=== PATIENT | female | born 1995 | race Caucasian/White ===

== ENCOUNTER → 2019-06-23 13:45 | Outpatient (CLI) | payer OTHER, SELFPAY ==
[2019-06-23 11:02] VITALS: BMI 31.1
[2019-06-23 16:46] LABS: Chlamydia Trachomatis by PCR Negative (Negative); Neisserai gonorrhoeae by PCR Negative (Negative); Probe Check PASS; Sample Adequacy Control PASS; Specimen Processing Control PASS
[2019-06-26 12:20] LABS: HPV Reflexed? NOT INDICATED
== END ==
PROVIDERS: Family Provider Internal Medicine; PCP Internal Medicine; Referring Provider Obstetrics & Gynecology; Visit Provider Obstetrics & Gynecology
DX: Z34.90 Encounter for supervision of normal pregnancy, unspecified, unspecified trimester (principal); Z12.4 Encounter for screening for malignant neoplasm of cervix
CPT/HCPCS: 87086; 87088; 87491; 87591; 87624; 88175; G0145

== ENCOUNTER → 2019-06-24 10:53 | Outpatient (CLI) | payer OTHER, SELFPAY ==
[2019-06-23 11:02] VITALS: BMI 31.1
[2019-06-24 12:20] LABS: Absolute Lymphocyte Count 1.86 X10^3/uL (0.83-4.51); Absolute Neutrophil Count 5.4 X10^3/uL (2.0-7.7); Basophil# 0.02 X10^3/uL; Basophil% 0.3 % (0-1); Eosinophil# 0.08 X10^3/uL; Hematocrit 40.3 % (37-47); Hemoglobin 14.3 g/dL (12.0-15.0); Lymphocyte # 1.86 X10^3/ul (4.0); Lymphocyte % 23.8 % (19-41); Mean Corp Hgb Conc 35.5 g/dL (32-36); Mean Corpuscular Hgb 30.9 pg (27.0-32.0); Mean Platelet Vol. 8.8 fl (6.2-12.0); Monocyte# 0.43 X10^3/uL; Monocyte% 5.5 % (0-10); NRBC Flagged by Analyzer 0 % (0-5); Neutrophil # 5.38 X10^3/uL (2.7-7.7); Neutrophil % 68.9 % (47-70); Platelet Count 227 K/mm3 (150-450); RBC Distribution Width CV 12.6 % (11.6-14.6); RBC Distribution Width SD 39.4 fl (35.1-43.9); Red Blood Count 4.63 M/mm3 (4.2-5.4); White Blood Count 7.8 K/mm3 (4.4-11.0)
[2019-06-24 12:33] LABS: Glucose Challenge Gest 1H 50g 110 mg/dL (70-140)
[2019-06-24 13:43] LABS: HIV - WCH Non-Reactive (Nonreactive); Hepatitis B Surface Antigen Non-Reactive (Nonreactive); Rubella IgG 17.4 IU/mL
[2019-06-26 01:38] LABS: Rapid Plasmin Reagin (RPR) NONREACTIVE (NONREACTIVE)
== END ==
PROVIDERS: Family Provider Internal Medicine; PCP Internal Medicine; Referring Provider Obstetrics & Gynecology; Visit Provider Obstetrics & Gynecology
DX: O99.210 Obesity complicating pregnancy, unspecified trimester (principal); Z3A.00 Weeks of gestation of pregnancy not specified
CPT/HCPCS: 36415; 82950; 85025; 86592; 86703; 86762; 86850; 86900; 86901; 87340

== ENCOUNTER → 2019-08-18 16:48 | Outpatient (CLI) | payer OTHER, SELFPAY ==
[2019-08-18 16:09] VITALS: BMI 33.0
[2019-08-18 18:15] LABS: Protein, Urine (Random) 13.6 mg/dL (<11.9); Protein:Creat Ratio 83 mg/g CRE (0-200)
== END ==
PROVIDERS: Family Provider Internal Medicine; PCP Internal Medicine; Referring Provider Obstetrics & Gynecology; Visit Provider Obstetrics & Gynecology
DX: O16.9 Unspecified maternal hypertension, unspecified trimester (principal); Z3A.00 Weeks of gestation of pregnancy not specified
CPT/HCPCS: 82570; 84156

== ENCOUNTER → 2019-10-23 15:33 | Outpatient (CLI) | payer OTHER, SELFPAY ==
[2019-10-23 14:54] VITALS: BMI 33.0
[2019-10-23 17:24] LABS: Absolute Lymphocyte Count 1.99 X10^3/uL (0.83-4.51); Absolute Neutrophil Count 7.9 X10^3/uL (2.0-7.7); Basophil# 0.02 X10^3/uL; Basophil% 0.2 % (0-1); Eosinophil# 0.08 X10^3/uL; Eosinophils% 0.8 % (0-5); Hematocrit 35.3 % (37-47); Hemoglobin 11.9 g/dL (12.0-15.0); Lymphocyte # 1.99 X10^3/ul (4.0); Mean Corp Hgb Conc 33.7 g/dL (32-36); Mean Corpuscular Hgb 29.8 pg (27.0-32.0); Mean Corpuscular Volume 88.3 fL (81-99); Mean Platelet Vol. 9.2 fl (6.2-12.0); Monocyte# 0.44 X10^3/uL; Monocyte% 4.2 % (0-10); NRBC Flagged by Analyzer 0 % (0-5); Neutrophil # 7.88 X10^3/uL (2.7-7.7); Neutrophil % 75.2 % (47-70); Platelet Count 243 K/mm3 (150-450); RBC Distribution Width CV 12.8 % (11.6-14.6); RBC Distribution Width SD 41.1 fl (35.1-43.9); White Blood Count 10.5 K/mm3 (4.4-11.0)
[2019-10-23 17:49] LABS: Glucose Challenge Gest 1H 50g 145 mg/dL (70-140)
== END ==
PROVIDERS: Family Provider Internal Medicine; PCP Internal Medicine; Referring Provider Obstetrics & Gynecology; Visit Provider Obstetrics & Gynecology
DX: Z34.01 Encounter for supervision of normal first pregnancy, first trimester (principal)
CPT/HCPCS: 36415; 82950; 85025

== ENCOUNTER → 2019-11-03 09:38 | Outpatient (CLI) | payer OTHER, SELFPAY ==
[2019-10-23 14:54] VITALS: BMI 33.0
[2019-11-03 11:34] LABS: Glucose GTT-Gestational 1 Hr 180 mg/dL (<190)
[2019-11-03 11:36] LABS: Glucose GTT-Gestation. Fasting 92 mg/dL (<105)
[2019-11-03 13:33] LABS: Glucose GTT-Gestational 3 Hr 125 L (<145)
[2019-11-03 13:37] LABS: Glucose GTT-Gestational 2 Hr 130 mg/dL (<165)
== END ==
PROVIDERS: Family Provider Internal Medicine; PCP Internal Medicine; Referring Provider Obstetrics & Gynecology; Visit Provider Obstetrics & Gynecology
DX: O99.810 Abnormal glucose complicating pregnancy (principal); Z3A.00 Weeks of gestation of pregnancy not specified
CPT/HCPCS: 36415; 82951; 82952

== ENCOUNTER → 2019-12-25 16:56 | Outpatient (CLI) | payer OTHER, SELFPAY ==
[2019-12-25 15:44] VITALS: BMI 36.9
== END ==
PROVIDERS: PCP Internal Medicine; Referring Provider Obstetrics & Gynecology; Visit Provider Obstetrics & Gynecology
DX: Z34.90 Encounter for supervision of normal pregnancy, unspecified, unspecified trimester (principal)
CPT/HCPCS: 87077; 87081; 87186

== ENCOUNTER → 2020-01-01 16:16 | Outpatient (CLI) | payer OTHER, SELFPAY ==
[2020-01-01 16:01] VITALS: BMI 36.9
[2020-01-01 16:31] LABS: Protein, Urine (Random) 15.1 mg/dL (<11.9); Protein:Creat Ratio 165 mg/g CRE (0-200)
== END ==
PROVIDERS: PCP Internal Medicine; Visit Provider Obstetrics & Gynecology
DX: O16.3 Unspecified maternal hypertension, third trimester (principal); Z3A.00 Weeks of gestation of pregnancy not specified
CPT/HCPCS: 82570; 84156

== ENCOUNTER 2020-01-14 16:05 | Outpatient (CLI) | payer OTHER, MEDICAID, SELFPAY ==
[2020-01-14 15:42] VITALS: BMI 36.9
[2020-01-14 16:22] VITALS: BP 132/85; PULSE 81; TEMP 98
[2020-01-14 16:23] VITALS: PULSE 81; O2SAT 97
--- NOTE | 2020-01-14 16:30 | OB.TRI.PN_ITS ---
Progress Notes Date of Service: 01/14/20 Progress Note: Patient presents for triage evaluation secondary to elevated blood pressures in the office FHT: 130 Moderate variability reactive no decelerations category I tracing Labette: no Contractions Assessment and plan: elevated blood pressures- repeats mostly WNL, asymptomatic, reassuring lab work, Reactive NST, reassuring maternal and status patient discharged to home to follow-up in office for bp check tomorrow. See problem list details for additional plan information. Multi Select Codes - Urinary/Genital Urinary/Genital CPT Codes: 56961-61 non-stress test Interp
[2020-01-14 16:39] VITALS: BP 136/89; PULSE 83
[2020-01-14 16:40] VITALS: BMI 39.3
[2020-01-14 16:48] LABS: Hematocrit 38.3 % (37-47); Hemoglobin 13.4 g/dL (12.0-15.0); Mean Corpuscular Hgb 30.1 pg (27.0-32.0); Mean Corpuscular Volume 86.1 fL (81-99); Mean Platelet Vol. 9.3 fl (6.2-12.0); Platelet Count 226 K/mm3 (150-450); RBC Distribution Width CV 13.3 % (11.6-14.6); RBC Distribution Width SD 41.6 fl (35.1-43.9); Red Blood Count 4.45 M/mm3 (4.2-5.4); White Blood Count 9.8 K/mm3 (4.4-11.0)
[2020-01-14 16:54] VITALS: BP 136/91; PULSE 80
[2020-01-14 17:08] VITALS: O2SAT 99
[2020-01-14 17:08] LABS: AST(SGOT) 16 U/L (15-37); Alanine Aminotransfer ALT/SGPT 16 U/L (13-56); Creatinine, Serum 0.72 mg/dL (0.55-1.02); EST Glomerular Filtration Rate 106 mL/min (>60); Est Glom Filt Rate - Afr Amer 128 mL/min (>60); Estimated Creatinine Clearance 117.16 ml/min; Protein, Urine (Random) 15.4 mg/dL (<11.9); Protein:Creat Ratio 198 mg/g CRE (0-200); Uric Acid 6.8 mg/dL (2.6-6.0)
[2020-01-14 17:09] VITALS: BP 135/93; PULSE 81
[2020-01-14 17:15] LABS: Partial Thromboplast Time 31.3 Seconds (24.1-36.2); Prothrombin Time (Protime)PT. 12.6 SECONDS (11.7-14.9)
[2020-01-15 13:00] VITALS: BP 153/96; PULSE 75; PULSE 78; O2SAT 98
== END 2020-01-14 17:30 | disposition home or self-care (01) ==
LOC: WPOUT 16:11 → OBT 16:21
PROVIDERS: PCP Internal Medicine; Referring Provider Obstetrics & Gynecology; Visit Provider Obstetrics & Gynecology
DX: O16.3 Unspecified maternal hypertension, third trimester (principal); Z3A.00 Weeks of gestation of pregnancy not specified
CPT/HCPCS: 36415; 59025; 59050; 82565; 82570; 84156; 84450; 84460; 84550; 85027; 85610; 85730; 99218; G0378

== ENCOUNTER 2020-01-15 13:46 | Inpatient (IN) | payer OTHER, MEDICAID, SELFPAY ==
[2020-01-15] VITALS (25 sets, daily range): BP systolic 125–170; BP diastolic 65–101; PULSE 61–86; TEMP 36.6–37.8; O2SAT 97–100; BMI 39.3; BMI 38.9
[2020-01-15 12:41] LABS: Absolute Lymphocyte Count 1.95 X10^3/uL (0.83-4.51); Absolute Neutrophil Count 8.2 X10^3/uL (2.0-7.7); Basophil# 0.03 X10^3/uL; Basophil% 0.3 % (0-1); Eosinophil# 0.05 X10^3/uL; Eosinophils% 0.5 % (0-5); Hematocrit 39.7 % (37-47); Hemoglobin 13.8 g/dL (12.0-15.0); Lymphocyte # 1.95 X10^3/ul (4.0); Mean Corp Hgb Conc 34.8 g/dL (32-36); Mean Corpuscular Volume 86.3 fL (81-99); Mean Platelet Vol. 9.7 fl (6.2-12.0); Monocyte# 0.58 X10^3/uL; Monocyte% 5.4 % (0-10); NRBC Flagged by Analyzer 0 % (0-5); Neutrophil # 8.15 X10^3/uL (2.7-7.7); Neutrophil % 75.3 % (47-70); Platelet Count 235 K/mm3 (150-450); RBC Distribution Width CV 13.5 % (11.6-14.6); RBC Distribution Width SD 41.8 fl (35.1-43.9); White Blood Count 10.8 K/mm3 (4.4-11.0)
[2020-01-15 12:54] LABS: ALB/GLOB Ratio 0.7 RATIO (0.9-2.4); AST(SGOT) 15 U/L (15-37); Alanine Aminotransfer ALT/SGPT 20 U/L (13-56); Albumin, Serum 2.8 g/dL (3.2-5.0); Alkaline Phosphatase 271 U/L (45-117); Anion Gap 6 (5-15); BUN 12 mg/dL (7-18); BUN/Creat Ratio 16.6 RATIO (10-20); Calcium,Total 9.2 mg/dL (8.5-10.1); Chloride 106 mmol/L (98-107); Creatinine, Serum 0.72 mg/dL (0.55-1.02); EST Glomerular Filtration Rate 104 mL/min (>60); Est Glom Filt Rate - Afr Amer 126 mL/min (>60); Globulin 4.3 g/dL (2.2-4.2); Glucose 88 mg/dL (74-106); Potassium 4.3 mmol/L (3.5-5.1); Protein, Total 7.1 g/dL (6.4-8.2); Sodium Level 136 mmol/L (136-145)
[2020-01-15 12:55] LABS: Protein, Urine (Random) 36.3 mg/dL (<11.9); Protein:Creat Ratio 212 mg/g CRE (0-200)
[2020-01-15] MEDS: Lactated Ringers 1,000 ML 50 ML IV ×2 (14:00→20:48)
[2020-01-15] MEDS: miSOPROStol 25 MCG TABLET VAGINAL (16:52)
[2020-01-15] MEDS: Lactated Ringers 1,000 ML 999 ML IV (19:48)
[2020-01-15] MEDS: Oxytocin 30 units/NS 500 ml 30 UNITS/500 ML IV.SOLN IV ×2 (23:15)
[2020-01-16] VITALS (43 sets, daily range): BP systolic 100–167; BP diastolic 55–96; PULSE 56–103; RESP 14–18; TEMP 36.3–37.1; O2SAT 80–100
--- NOTE | 2020-01-16 06:14 | PCM.HP.OB ---
- Problem List (1) Variable heart rate decelerations, antepartum Status: Acute (2) Gestational hypertension Status: Acute History Date of Admission: 01/15/20 Final KARLENE: 01/19/20 Gestational age: 39 Weeks and 4 Days History of this : This is a 24 year-old, , at 39 weeks gestational age presents for IOL secondary to GHTN. BPs are ranging in the 140s-150s over 90s with no MORILLO BV N V. she has some contractions but nothing regular, no vb lof admits good fm. When she was initially on the monitor there was a spontaneous heart rate decel down into the 70s to 80s with good recovery, moderate variability and is reactive. Medical History: Medical History (Last Reviewed 01/15/20 @ 11:41 by Nichole Trejo) PCOS (polycystic ovarian syndrome) E28.2 Surgical History: Surgical History (Last Reviewed 01/15/20 @ 11:41 by Nichole Trejo) H/O wisdom tooth extraction K08.409 Allergies No Known Allergies Allergy (Verified 01/15/20 11:41) Home Medications: Home Medications multivitamin no.47-iron fum 27 mg-folate no.1 1 mg-dha 300 mg capsule 1 cap PO DAILY cap 06/23/19 breast pump See Rx Instructions .ROUTE .MEDSUPPLY #1 ea 12/30/19 Smoking Status: Never smoker Alcohol: None Number of Fetus(es): 1 NST - FHR Rate Baby A Baseline: 130 Variability:: Moderate Accelerations:: 15 x 15 Decelerations:: Variable, Prolonged NST Reactive:: Yes FHR Category:: Category II Uterine Activity:: irregular History Past Pregnancies: Past Pregnancies Delivery Date Name GA/ Weeks Outcome Route Wt Sex Labor Length Anesthesia Delivery Location Provider FOB Labs: Mom's Current Diagnoses Unspecified maternal hypertension, third trimester 01/15/20 Mom's Labs & Results 01/15/20 01/15/20 01/15/20 11:59 11:59 11:59 WBC 10.8 RBC 4.60 Hgb 13.8 Hct 39.7 MCV 86.3 MCH 30.0 MCHC 34.8 RDW Std Deviation 41.8 RDW Coeff of Rakesh 13.5 Plt Count 235 MPV 9.7 Immature Gran % (Auto) 0.500 Neut % (Auto) 75.3 H Lymph % (Auto) 18.0 L Grayson % (Auto) 5.4 Eos % (Auto) 0.5 Baso % (Auto) 0.3 Absolute Neuts (auto) 8.2 H Absolute Lymphs (auto) 1.95 Nucleated RBC % 0 Sodium 136 Potassium 4.3 Chloride 106 Carbon Dioxide 24.0 Anion Gap 6 BUN 12 Creatinine 0.72 Est GFR (MDRD) Af Amer 126 Est GFR (MDRD) Non-Af 104 BUN/Creatinine Ratio 16.6 Glucose 88 Calcium 9.2 Total Bilirubin 0.20 AST 15 ALT 20 Alkaline Phosphatase 271 H Total Protein 7.1 Albumin 2.8 L Globulin 4.3 H Albumin/Globulin Ratio 0.7 L U Random Total Protein 36.3 H Urine Creatinine 171.00 Protein/Creatinin Ratio 212 H Blood Type Antibody Screen 01/15/20 14:15 WBC RBC Hgb Hct MCV MCH MCHC RDW Std Deviation RDW Coeff of Rakesh Plt Count MPV Immature Gran % (Auto) Neut % (Auto) Lymph % (Auto) Grayson % (Auto) Eos % (Auto) Baso % (Auto) Absolute Neuts (auto) Absolute Lymphs (auto) Nucleated RBC % Sodium Potassium Chloride Carbon Dioxide Anion Gap BUN Creatinine Est GFR (MDRD) Af Amer Est GFR (MDRD) Non-Af BUN/Creatinine Ratio Glucose Calcium Total Bilirubin AST ALT Alkaline Phosphatase Total Protein Albumin Globulin Albumin/Globulin Ratio U Random Total Protein Urine Creatinine Protein/Creatinin Ratio Blood Type B POSITIVE Antibody Screen NEGATIVE Course Did the patient receive Yes care? Labs Blood Type: B RH: POSITIVE RPR/VDRL/Syphilis Nonreactive Rubella status Immune HbSAg Negative Date Done: 06/24/19 Chlamydia Negative Gonorrhea Negative HIV/AIDS Non-Reactive Group B Strep: Positive Current Obstetrical History Gestational Diabetes No: 3-hr test negative Incompetent Cervix No Infertility No: PCOS - no meds for IUGR No Macrosomia No Hypertension/Pre-eclampsia Yes Placenta Previa/Abruption No PTL/PROM No Uterine anomaly No Oligohydramnios No Polyhydramnios No Multiple gestation No Past Medical History Asthma No Diabetes No Hypertension Yes: prev. had - has been good for a couple years, no meds Heart disease No Mitral valve prolapse No Neurologic/Seizure disorder/ No Migraines Kidney disease No Liver disease No Varicosities No Clotting disorders/Hx of DVT No Thyroid Dysfunction No Other medical diseases No Psychiatric disorders No Major trauma No Abnormal PAP smear No Sleep apnea No Mammogram in the last 2 years No Social History Marital Status: SINGLE Alleged father Abdulkadir Tillman Hx Smoking No Smoking Status Never smoker Expected Infant Delivery Method: Spontaneous Vaginal Review of Systems Constitutional: Denies: Fever, Malaise Eyes: Denies: Blurred vision, Vision Change HEENT: Denies: Head Aches, Visual Changes Cardiovascular: Denies: Chest Pain, Palpitations Respiratory: Denies: Cough, Shortness of Breath, Wheezing Gastrointestinal: Denies: Abdominal Pain, Diarrhea, Nausea, Vomiting Genitourinary: Denies: Dysuria, Hematuria Musculoskeletal: Denies: Joint Pain, Muscle pain Skin: Denies: Lesions, Rash Neurological: Denies: Blurred vision, Focal weakness, Headaches Psychiatric: Denies: Anxiety, Depression Endocrine: Denies: Heat/ Cold Intolerance Hematologic/ Lymphatic: Denies: Easy Bruising, Easy Bleeding Physical Exam Vitals: Vital Signs Temp Pulse BP Pulse Ox 98.1 F 66 130/66 H 98 01/16/20 06:04 01/16/20 06:02 01/16/20 06:02 01/16/20 06:04 General: Alert, Cooperative, No apparent distress HEENT: Atraumatic, Normocephalic. Negative for: Thyromegaly, Lymphadenopathy Cardiovascular: Regular rate Lungs: Normal air movement Abdomen: Soft, Non Tender, Gravid Neurological: Deep Tendon Reflexes 2+/4 and Symmetrical, Neuro grossly intact. Negative for: Clonus GEOSPATIAL INFORMATION TECHNOLOGIST: Normal external genitalia. Negative for: Vulvar lesions Estimated gestational size: Appropriate for gestational size Presentation: Cephalic Cervix Dilation (cm): 1 Assessment/Plan All Active Problems (Last Reviewed 01/15/20 @ 11:41 by Nichole Trejo) Variable heart rate decelerations, antepartum (Acute) Gestational hypertension (Acute) GBS (group B Streptococcus carrier), +RV culture, currently (Acute) Abnormal glucose affecting (Acute) Influenza vaccination declined (Acute) Obesity affecting (Acute) Supervision of normal (Acute) (Acute) Elevated blood pressure affecting in second trimester, antepartum (Resolved) This is a 24 year-old, , at 39 weeks gestational age presents at 39 weeks for IOL secondary to GHTN and heart rate decel. Patient presents IOL, plan management for , plan Cytotec then Pitocin and AROM Pain management: [plans epidural]. GBS positive plan vancomycin. Management of any complications: Gestational hypertension and heart rate decelerations. Uric acid elevated but other labs within normal limits. Plan magnesium sulfate if severely elevated blood pressures. I have reviewed the [facility] and made any clinically relevant updates.
--- NOTE | 2020-01-16 06:41 | PCM.PN.BLA ---
Progress Note patient examined and noted to be 3 cm dilated, loss of station and different shape of abdomen noted- ultrasound confirms conversion to breech presentation. pitocin turned off immediately, polyhydramnios noted on ultrasound and discussed with patient option of ECV or immediate delivery. discussed risks of either procedure. patient agrees to external cephalic version. epidural placed and terbutaline given. constant pressure was applied to attempt conversion to vertex with a forward roll then attempted backwards roll. neither were successful and therefore the decision to proceed with primary for breech was made. STROKE Vital Signs/Narrative: Vital Signs Temp Pulse BP Pulse Ox 01/16/20 06:04 98.1 F 98 01/16/20 06:02 66 130/66 H 01/16/20 04:41 98.5 F 74 124/67 H 98 01/16/20 03:34 97.7 F L 76 135/88 H 98
[2020-01-16] MEDS: Lactated Ringers 500 ML 999 ML IV (06:58)
[2020-01-16] MEDS: Terbutaline 1 MG/ML Vial 0.25 MG SC (08:43)
[2020-01-16] MEDS: Sodium Citrate/Citric Acid 30 ML UDC PO (09:11)
[2020-01-16] MEDS: Cefazolin 2 GM in 0.9% Normal Saline 100 ML IV (09:20)
--- NOTE | 2020-01-16 10:39 | PCM.OPRPT ---
Problem List (1) Variable heart rate decelerations, antepartum Status: Acute (2) Gestational hypertension Status: Acute Report of Operation Date of Procedure: 01/16/20 Delivery Classification: VANESSA transportation superintendent: Marian Fuentse Type of Anesthesia:: Epidural Special Medications: nacho Implants Used: none Date of Procedure: 01/16/20 Pre-Operative Diagnosis: ghtn, breech Post-Operative Diagnosis: same Indications for : Breech Description of Procedure: Patient is a 24-year-old G1, P0 who presented at 39 and 3 with new onset gestational hypertension. Infant was felt to be vertex and intermittent variable decelerations were noted however she was still able to be given by being induced by Cytotec and then Pitocin. Aggressive positionings throughout the night due to heart rate tracing abnormalities were undertaken and upon reevaluation in the morning she was 3 cm dilated and it was noted that the appearance of her abdomen looked drastically different and there was a change in station. Ultrasound confirmed conversion to breech. Patient was counseled and consented for an external cephalic version and this was unsuccessful and therefore the decision to proceed with her primary low transverse was made. Epidural had already been placed and was found to be adequate. Drake catheter was placed. The patient was placed in the dorsal supine position with leftward tilt. Patient was prepped and draped in the normal sterile fashion. Pfannenstiel skin incision was made with the scalpel and carried through to the underlying layer of fascia with the scalpel. Fascia was nicked in the midline and the incision extended laterally. The rectus bellies were dissected off superiorly and inferiorly with out complication both sharply and bluntly. The peritoneum was entered digitally. The incision was stretched and a low transverse uterine incision was made with the scalpel. The infant's buttocks was delivered atraumatically followed by the anterior and posterior shoulders without complication the rest of the infant delivered. The cord was clamped and cut and the was handed off to awaiting nurse. The placenta was delivered spontaneously immediately following and was noted to be intact and have a three-vessel cord. The uterus was exteriorized cleared of all clots and debris, and the incision was closed in a double layer closure using #1 Monocryl. The ovaries and fallopian tubes were noted to be within normal limits. The uterus was returned to the maternal abdomen and gutters were cleared of all clots and debris. The peritoneum was closed with 3-0 Monocryl in a running fashion. Gloves were changed prior to fascial closure. Nacho was applied to the rectus bellies and the Bovie and an additional 3-0 Monocryl suture were placed to obtain hemostasis. Fascia was closed with 0 PDS in a running fashion. Subcutaneous tissue was copiously irrigated and the skin was closed with 3-0 Monocryl in a subcuticular fashion. Mepilex dressing was applied without complication. Patient was taken to recovery in stable condition. It was discussed with the patient that based on the clinical information obtained during this encounter, combined with her history, at this time I would recommend vaginal or cesareans for future deliveries if further pregnancies are desired. Amniotic Membrane Rupture Type: Artificial Amniotic Fluid Description: Clear Placenta Disposition: [facility] Specimen(s) sent to pathology: none Drain: Drake to straight drain Fluids Replaced: crystalloid Cord Entanglement: None Cord Vessel Description: 3 Vessels Esitmated Blood Loss (ml): 900 Infant Gender: Male Multi Select Codes - Urinary/Genital Urinary/Genital CPT Codes: 94358 Delivery [facility]
[2020-01-16] MEDS: Oxytocin 30 units/NS 500 ml 30 UNITS/500 ML IV.SOLN 167 UNITS IV (10:40)
[2020-01-16] MEDS: Lactated Ringers 1,000 ML 100 ML IV (13:44)
[2020-01-16] MEDS: Ketorolac 30 MG/ML Syringe IV ×2 (14:46→20:47)
--- NOTE | 2020-01-16 18:10 | PCM.PN.OB ---
Patient Problems: Active and Suspected Problems (Last Reviewed 01/15/20 @ 11:41 by Nichole Trejo) Variable heart rate decelerations, antepartum (Acute) Gestational hypertension (Acute) Subjective: doing well no complaints pain controlled no CP SOB N V ambulating well tolerating po lochia moderate, going well - Physical Exam Vitals/I&O's: Vital Signs Temp Pulse Resp BP Pulse Ox 98.4 F 89 16 124/67 H 98 01/16/20 16:30 01/16/20 16:30 01/16/20 17:04 01/16/20 16:30 01/16/20 17:04 Oxygen Delivery Method Room Air Weight: 249 lb 1.957 oz Body Mass Index (BMI) 38.9 Intake and Output for Last 24 Hours 01/14/20 01/15/20 01/16/20 23:59 23:59 23:59 Intake Total 1291 / 1291 3871.66 / 3871.66 Output Total 2300 / 2300 Balance 1291 / 1291 1571.66 / 1571.66 General: Alert, Oriented x3 Current Medications Acetaminophen (Tylenol) 1,000 mg PO Q8H PRN PRN Reason: Pain Score 1-3/10 Bisacodyl (Dulcolax) 10 mg RECTAL UD PRN PRN Reason: If no BM Diphenhydramine HCl (Benadryl) 25 mg PO Q6H PRN PRN PRN Reason: ITCHING Stop: 01/17/20 13:10 Enoxaparin Sodium (Lovenox) 40 mg SC DAILY [facility] Hydrocortisone (Hytone) 1 applic TOPICAL TID PRN PRN; Protocol PRN Reason: Discomfort Lactated Ringer's () 1,000 mls @ 100 mls/hr IV .Q10H [facility] Last Infusion: 01/16/20 17:53 Dose: Infused Documented by: Naloxone HCl 4 mg/ Dextrose 504 mls @ 0 mls/hr IV .Q0M PRN; Protocol PRN Reason: Respiratory depression Naloxone HCl 4 mg/ Dextrose 504 mls @ 0 mls/hr IV .Q0M PRN; Protocol PRN Reason: To maintain Resp. rate >10 Ketorolac Tromethamine (Toradol (Bkc)) 30 mg IV Q6H [facility] Stop: 01/18/20 09:01 Methylergonovine Maleate (Methergine) 0.2 mg IM X1 PRN PRN Reason: Uterine Atony Naloxone HCl (Narcan) 0.02 mg IV Q1M PRN PRN Reason: RR <10 and pt unresponsive Naproxen (Naprosyn) 250 - 500 mg PO Q8H PRN PRN PRN Reason: Pain Score 1-3/10 Ondansetron HCl (Zofran) 4 mg IV Q4H PRN PRN PRN Reason: Nausea Oxycodone HCl (Oxyir) 5 - 10 mg PO Q4H PRN PRN PRN Reason: Pain Score 4-10/10 Prochlorperazine Edisylate (Compazine Iv) 10 mg IV Q6H PRN PRN PRN Reason: NAUSEA Senna/Docusate Sodium (Senokot-S, Cici-Colace) 0 tablet PO DAILY PRN PRN Reason: Constipation Simethicone (Mylicon) 80 mg PO PCHS PRN PRN Reason: Indigestion/stomach pain Sodium Chloride () 5 - 15 ml IV UD PRN PRN Reason: SALINE FLUSH Medical Necessity - Tobacco Use Smoking Status: Never smoker Assessment/Plan All Active Problems (Last Reviewed 01/15/20 @ 11:41 by Nichole Trejo) Variable heart rate decelerations, antepartum (Acute) Gestational hypertension (Acute) GBS (group B Streptococcus carrier), +RV culture, currently (Acute) Abnormal glucose affecting (Acute) Influenza vaccination declined (Acute) Obesity affecting (Acute) Supervision of normal (Acute) (Acute) Elevated blood pressure affecting in second trimester, antepartum (Resolved) s/p LTCS PPD # 0 1. routine post care 2. breast feeding- support given 3. rh positive 4. rubella immune
[2020-01-16] MEDS: 0.9% Saline Lock 10 ML Syringe IV (20:47)
--- NOTE | 2020-01-16 23:30 | NURSING ---
At this time, this nurse straight catheterized this patient due to the patient feeling the urge to urinate but not being able to go within the six hours since her indwelling catheter was removed.
[2020-01-17] VITALS (8 sets, daily range): BP systolic 109–126; BP diastolic 62–80; PULSE 78–88; RESP 16–18; TEMP 36.6–36.9; O2SAT 96–100
[2020-01-17] MEDS: Ketorolac 30 MG/ML Syringe IV (03:53)
[2020-01-17 06:57] LABS: Hematocrit 32.6 % (37-47); Hemoglobin 11.3 g/dL (12.0-15.0); Mean Corp Hgb Conc 34.7 g/dL (32-36); Mean Corpuscular Volume 86.5 fL (81-99); Mean Platelet Vol. 9.4 fl (6.2-12.0); Platelet Count 187 K/mm3 (150-450); RBC Distribution Width CV 13.7 % (11.6-14.6); RBC Distribution Width SD 43.1 fl (35.1-43.9); Red Blood Count 3.77 M/mm3 (4.2-5.4); White Blood Count 12.5 K/mm3 (4.4-11.0)
--- NOTE | 2020-01-17 08:02 | PCM.PN.OB ---
Patient Problems: Active and Suspected Problems (Last Reviewed 01/15/20 @ 11:41 by Nichole Trejo) Variable heart rate decelerations, antepartum (Acute) Gestational hypertension (Acute) Subjective: doing well no complaints pain controlled no CP SOB N V ambulating well tolerating po lochia moderate, going well - Physical Exam Vitals/I&O's: Vital Signs Temp Pulse Resp BP Pulse Ox 97.9 F 82 16 112/62 100 01/17/20 04:00 01/17/20 05:00 01/17/20 05:00 01/17/20 04:00 01/17/20 05:00 Oxygen Delivery Method Room Air Weight: 249 lb 1.957 oz Body Mass Index (BMI) 38.9 Intake and Output for Last 24 Hours 01/15/20 01/16/20 01/18/20 23:59 23:59 00:59 Intake Total 1291 / 1291 3871.66 / 3871.66 Output Total 2800 / 2800 500 / 500 Balance 1291 / 1291 1071.66 / 1071.66 -500 / -500 General: Alert, Oriented x3 Laboratory Results 01/17/20 06:39: WBC 12.5 H, RBC 3.77 L, Hgb 11.3 L, Hct 32.6 L, MCV 86.5, MCH 30.0, MCHC 34.7, RDW Std Deviation 43.1, RDW Coeff of Rakesh 13.7, Plt Count 187, MPV 9.4 Current Medications Acetaminophen (Tylenol) 1,000 mg PO Q8H PRN PRN Reason: Pain Score 1-3/10 Bisacodyl (Dulcolax) 10 mg RECTAL UD PRN PRN Reason: If no BM Diphenhydramine HCl (Benadryl) 25 mg PO Q6H PRN PRN PRN Reason: ITCHING Stop: 01/17/20 13:10 Enoxaparin Sodium (Lovenox) 40 mg SC DAILY [facility] Hydrocortisone (Hytone) 1 applic TOPICAL TID PRN PRN; Protocol PRN Reason: Discomfort Lactated Ringer's () 1,000 mls @ 100 mls/hr IV .Q10H [facility] Last Admin: 01/17/20 05:25 Dose: Not Given Documented by: Naloxone HCl 4 mg/ Dextrose 504 mls @ 0 mls/hr IV .Q0M PRN; Protocol PRN Reason: Respiratory depression Naloxone HCl 4 mg/ Dextrose 504 mls @ 0 mls/hr IV .Q0M PRN; Protocol PRN Reason: To maintain Resp. rate >10 Ketorolac Tromethamine (Toradol (Bkc)) 30 mg IV Q6H [facility] Stop: 01/18/20 09:01 Last Admin: 01/17/20 03:53 Dose: 30 mg Documented by: Methylergonovine Maleate (Methergine) 0.2 mg IM X1 PRN PRN Reason: Uterine Atony Naloxone HCl (Narcan) 0.02 mg IV Q1M PRN PRN Reason: RR <10 and pt unresponsive Naproxen (Naprosyn) 250 - 500 mg PO Q8H PRN PRN PRN Reason: Pain Score 1-3/10 Ondansetron HCl (Zofran) 4 mg IV Q4H PRN PRN PRN Reason: Nausea Oxycodone HCl (Oxyir) 5 - 10 mg PO Q4H PRN PRN PRN Reason: Pain Score 4-10/10 Prochlorperazine Edisylate (Compazine Iv) 10 mg IV Q6H PRN PRN PRN Reason: NAUSEA Senna/Docusate Sodium (Senokot-S, Cici-Colace) 0 tablet PO DAILY PRN PRN Reason: Constipation Simethicone (Mylicon) 80 mg PO PCHS PRN PRN Reason: Indigestion/stomach pain Sodium Chloride () 5 - 15 ml IV UD PRN PRN Reason: SALINE FLUSH Last Admin: 01/16/20 20:47 Dose: 10 ml Documented by: Medical Necessity - Tobacco Use Smoking Status: Never smoker Assessment/Plan All Active Problems (Last Reviewed 01/15/20 @ 11:41 by Nichole Trejo) Variable heart rate decelerations, antepartum (Acute) Gestational hypertension (Acute) GBS (group B Streptococcus carrier), +RV culture, currently (Acute) Abnormal glucose affecting (Acute) Influenza vaccination declined (Acute) Obesity affecting (Acute) Supervision of normal (Acute) (Acute) Elevated blood pressure affecting in second trimester, antepartum (Resolved) s/p LTCS PPD # 1 1. routine post care 2. breast feeding- support given 3. rh positive 4. rubella immune
--- NOTE | 2020-01-17 08:25 | DCINST_ITS ---
Discharge Diet: No Restrictions Discharge Activity: May Not Drive - for 2 weeks, May not drive while taking narcotic pain medications., May Shower, May Take a Tub Bath - in 7 days May resume sexual activity in: 4-6 weeks Lifting Restrictions: 20 pounds Additional Activity Instructions:: Nothing in the vagina for 4-6 weeks. You may return to work/school in 6 weeks. Call your doctor if your incision/area has: Continuous Slow Oozing, Sudden Increased Bleeding, Increased Pain/ Swelling, Increased Redness, Foul Smelling Discharge Call your doctor if you observe: Fever of 101 or Higher, Using more than one pad per hour - for 2 hours Suture Line Care: Avoid Pulling/Pushing, Avoid Pinching/Bending Cleanse incision/area with: Keep Dressing Clean & Dry Additional Instructions: If you experience any of the following, contact your healthcare provider. * Bleeding that soaks a pad every hour for 2 hours * Fever 100.4 or higher * Unrelieved incision or abdominal pain * Swelling, redness, discharge or bleeding from your incision or episiotomy site * Your incision begins to separate * Problems urinating (including inability to urinate or burning while urinating). * Visual changes * Severe headache * Flu-like symptoms * Pain or redness in one of both of your breasts * Pain, warmth, tenderness or swelling in your legs, especially the calf area * Frequent nausea and vomiting * Symptoms of depression or anxiety If you experience any of the following, call 911 or go to the nearest Emergency Room. * Chest pain * Problems breathing * Seizure activity * Partial or complete paralysis of a body part, slurred speech, weakness or drooping of the face, or a sudden inability to walk or hold your balance Allergies/Adverse Reactions: Allergies No Known Allergies Allergy (Verified 01/15/20 11:41) Medications to take at Discharge multivitamin no.47-iron fum 27 mg-folate no.1 1 mg-dha 300 mg capsule 1 cap PO DAILY cap 06/23/19 breast pump See Rx Instructions .ROUTE .MEDSUPPLY #1 ea 12/30/19 Naproxen [Naprosyn] 250 - 500 mg PO Q8H PRN PRN #30 tab 01/17/20 Oxycodone HCl/Acetaminophen [Percocet 5-325] 1 - 2 tablet PO Q6H PRN PRN 7 Days #15 tablet 01/17/20 The following prescriptions were given: Naproxen [Naprosyn] 250 - 500 mg PO Q8H PRN PRN #30 tab PRN Reason: MILD PAIN Transmission Status: Pending to [facility] Oxycodone HCl/Acetaminophen [Percocet 5-325] 1 - 2 tablet PO Q6H PRN PRN 7 Days #15 tablet PRN Reason: Pain Transmission Status: Sent to [facility] Follow-Up: Call to make an appointment with your doctor for an incision check in 1-2 weeks. You will also need a 6 week post- follow up appointment. Test results from this visit will be discussed in further detail at your follow- up appointment, if applicable. Please Follow Up With: Lluvia Kirkpatrick MD - Call to make an appointment for an incision check in 1-2 [phone] When: You will need a post- check in 6 weeks. Primary Care Physician: Sheba Sullivan MD [Primary Care Provider] -
[2020-01-17] MEDS: Naproxen 250 MG Tablet PO ×2 (10:04→18:12)
[2020-01-17] MEDS: Enoxaparin 40 MG/0.4 ML Syringe SC (10:05)
[2020-01-17] MEDS: Acetaminophen 500 MG Tablet 1000 MG PO (15:35)
[2020-01-17] MEDS: oxyCODONE 5 MG Tablet PO (17:04)
[2020-01-18 01:20] VITALS: BP 120/74; PULSE 74; RESP 16; TEMP 36.3; O2SAT 97
[2020-01-18] MEDS: Naproxen 250 MG Tablet PO (03:33)
--- NOTE | 2020-01-18 08:10 | PCM.PN.OB ---
Patient Problems: Active and Suspected Problems (Last Reviewed 01/15/20 @ 11:41 by Nichole Trejo) Variable heart rate decelerations, antepartum (Acute) Gestational hypertension (Acute) Subjective: Doing well, no complaints.Pain controlled. Denies CP, SOB, N,V. Ambulating well, tolerating po. Lochia moderate, going well. - Physical Exam Vitals/I&O's: Vital Signs Temp Pulse Resp BP Pulse Ox 97.3 F L 74 16 120/74 97 01/18/20 01:20 01/18/20 01:20 01/18/20 01:20 01/18/20 01:20 01/18/20 01:20 Oxygen Delivery Method Room Air Weight: 249 lb 1.957 oz Body Mass Index (BMI) 38.9 Intake and Output for Last 24 Hours 01/16/20 01/17/20 01/18/20 22:59 23:59 23:59 Intake Total Output Total Balance General: Alert, Oriented x3 Abdomen: Soft, Non-Distended, - - FF below U. Dressing dry and intact/old drainage only Current Medications Acetaminophen (Tylenol) 1,000 mg PO Q8H PRN PRN Reason: Pain Score 1-3/10 Last Admin: 01/17/20 15:35 Dose: 1,000 mg Documented by: Bisacodyl (Dulcolax) 10 mg RECTAL UD PRN PRN Reason: If no BM Enoxaparin Sodium (Lovenox) 40 mg SC DAILY JANNA Last Admin: 01/17/20 10:05 Dose: 40 mg Documented by: Hydrocortisone (Hytone) 1 applic TOPICAL TID PRN PRN; Protocol PRN Reason: Discomfort Naloxone HCl 4 mg/ Dextrose 504 mls @ 0 mls/hr IV .Q0M PRN; Protocol PRN Reason: Respiratory depression Naloxone HCl 4 mg/ Dextrose 504 mls @ 0 mls/hr IV .Q0M PRN; Protocol PRN Reason: To maintain Resp. rate >10 Methylergonovine Maleate (Methergine) 0.2 mg IM X1 PRN PRN Reason: Uterine Atony Naloxone HCl (Narcan) 0.02 mg IV Q1M PRN PRN Reason: RR <10 and pt unresponsive Naproxen (Naprosyn) 250 - 500 mg PO Q8H PRN PRN PRN Reason: Pain Score 1-3/10 Last Admin: 01/18/20 03:33 Dose: 500 mg Documented by: Ondansetron HCl (Zofran) 4 mg IV Q4H PRN PRN PRN Reason: Nausea Oxycodone HCl (Oxyir) 5 - 10 mg PO Q4H PRN PRN PRN Reason: Pain Score 4-10/10 Last Admin: 01/17/20 17:04 Dose: 5 mg Documented by: Prochlorperazine Edisylate (Compazine Iv) 10 mg IV Q6H PRN PRN PRN Reason: NAUSEA Senna/Docusate Sodium (Senokot-S, Cici-Colace) 0 tablet PO DAILY PRN PRN Reason: Constipation Simethicone (Mylicon) 80 mg PO PCHS PRN PRN Reason: Indigestion/stomach pain Last Admin: 01/17/20 18:13 Dose: 80 mg Documented by: Sodium Chloride () 5 - 15 ml IV UD PRN PRN Reason: SALINE FLUSH Last Admin: 01/16/20 20:47 Dose: 10 ml Documented by: Medical Necessity - Tobacco Use Smoking Status: Never smoker Assessment/Plan All Active Problems (Last Reviewed 01/15/20 @ 11:41 by Nichole Trejo) Variable heart rate decelerations, antepartum (Acute) Gestational hypertension (Acute) GBS (group B Streptococcus carrier), +RV culture, currently (Acute) Abnormal glucose affecting (Acute) Influenza vaccination declined (Acute) Obesity affecting (Acute) Supervision of normal (Acute) (Acute) Elevated blood pressure affecting in second trimester, antepartum (Resolved) s/p LTCS PPD # 2 1. routine post care 2. breast feeding- support given 3. rh positive 4. rubella immune 5. BP well controlled 6. Possibly home today.
[2020-01-18 09:20] VITALS: BP 137/82; PULSE 84; RESP 16; TEMP 36.7; O2SAT 97
[2020-01-18] MEDS: Enoxaparin 40 MG/0.4 ML Syringe SC (09:25)
[2020-01-18] MEDS: Acetaminophen 500 MG Tablet 1000 MG PO (09:56)
[2020-01-18] MEDS: Senna/Docusate Sodium 1 Tablet PO (09:58)
[2020-01-18 12:44] VITALS: BP 137/84; PULSE 89; RESP 16; TEMP 36.7; O2SAT 98
== END 2020-01-18 13:35 | disposition home or self-care (01) | DRG 788 ==
LOC: WP 14:42
PROVIDERS: Admitting Provider Obstetrics & Gynecology; PCP Internal Medicine; Referring Provider Obstetrics & Gynecology; Visit Provider Obstetrics & Gynecology
DX: O32.1XX0 Maternal care for breech presentation, not applicable or unspecified (principal); O76 Abnormality in fetal heart rate and rhythm complicating labor and delivery; Z37.0 Single live birth; O13.4 Gestational [pregnancy-induced] hypertension without significant proteinuria, complicating childbirth; Z3A.39 39 weeks gestation of pregnancy; E66.9 Obesity, unspecified; O99.214 Obesity complicating childbirth; O99.824 Streptococcus B carrier state complicating childbirth; O40.3XX0 Polyhydramnios, third trimester, not applicable or unspecified
CPT/HCPCS: 36415; 59025; 59050; 80053; 82570; 84156; 85025; 85027; 86850; 86900; 86901; 99218; 99251; J7040; J7120; A4216; G0378; G0463; J2405

== ENCOUNTER → 2021-09-20 10:44 | Outpatient (CLI) | payer MEDICAID, SELFPAY ==
[2021-09-20 12:21] LABS: ALB/GLOB Ratio 0.8 RATIO (0.9-2.4); AST(SGOT) 10 U/L (15-37); Alanine Aminotransfer ALT/SGPT 20 U/L (13-56); Albumin, Serum 3.6 g/dL (3.2-5.0); Alkaline Phosphatase 80 U/L (45-117); Anion Gap 5 (5-15); BUN 9 mg/dL (7-18); BUN/Creat Ratio 12.9 RATIO (10-20); Calcium,Total 8.9 mg/dL (8.5-10.1); Chloride 102 mmol/L (98-107); EST Glomerular Filtration Rate 108 mL/min (>60); Est Glom Filt Rate - Afr Amer 131 mL/min (>60); Globulin 4.3 g/dL (2.2-4.2); Glucose 118 mg/dL (74-106); Glucose Challenge Gest 1H 50g 118 mg/dL (70-140); Potassium 3.9 mmol/L (3.5-5.1); Protein, Total 7.9 g/dL (6.4-8.2); Sodium Level 135 mmol/L (136-145)
[2021-09-20 13:03] LABS: HIV - WCH Non-Reactive (Nonreactive); Hepatitis B Surface Antigen Non-Reactive (Nonreactive); Hepatitis C Antibody Non-Reactive (Nonreactive); Rubella IgG Equiv (Nonreactive); Syphilis Antibodies Non-reactive
[2021-09-22 13:50] LABS: Lead, Blood Adult 16+yrs < 1 ug/dL (0-4)
[2021-09-23 11:08] LABS: Chlamydia By Nucleic Acid AMP Negative (Negative)
[2021-09-25 15:02] LABS: Gonococcus By Nucleic Acid AMP Negative (Negative)
== END ==
PROVIDERS: PCP Internal Medicine; Visit Provider Obstetrics & Gynecology
DX: O09.90 Supervision of high risk pregnancy, unspecified, unspecified trimester (principal); Z3A.00 Weeks of gestation of pregnancy not specified; Z98.891 History of uterine scar from previous surgery
CPT/HCPCS: 36415; 80053; 82950; 83655; 86703; 86762; 86780; 86803; 86850; 86900; 86901; 87340; 87491; 87591

== ENCOUNTER → 2021-10-20 11:59 | Outpatient (CLI) | payer MEDICAID, SELFPAY | PROVIDERS: PCP Internal Medicine; Visit Provider Obstetrics & Gynecology | DX: Z00.00 Encounter for general adult medical examination without abnormal findings (principal) ==

== ENCOUNTER → 2021-10-20 12:02 | Outpatient (CLI) | payer MEDICAID, SELFPAY ==
[2021-10-20 13:10] LABS: ALB/GLOB Ratio 0.9 RATIO (0.9-2.4); AST(SGOT) 10 U/L (15-37); Alanine Aminotransfer ALT/SGPT 33 U/L (13-56); Albumin, Serum 3.4 g/dL (3.2-5.0); Alkaline Phosphatase 71 U/L (45-117); Anion Gap 6 (5-15); BUN 7 mg/dL (7-18); BUN/Creat Ratio 10.8 RATIO (10-20); Calcium,Total 8.9 mg/dL (8.5-10.1); Chloride 104 mmol/L (98-107); Creatinine, Serum 0.65 mg/dL (0.55-1.02); EST Glomerular Filtration Rate 117 mL/min (>60); Est Glom Filt Rate - Afr Amer 142 mL/min (>60); Globulin 3.9 g/dL (2.2-4.2); Glucose 93 mg/dL (74-106); Potassium 3.7 mmol/L (3.5-5.1); Protein, Total 7.3 g/dL (6.4-8.2); Sodium Level 139 mmol/L (136-145)
[2021-10-20 13:14] LABS: Protein, Urine (Random) 20.2 mg/dL (<11.9); Protein:Creat Ratio 93 mg/g CRE (0-200)
[2021-10-20 13:18] LABS: Amphetamine Urine VISTA NEGATIVE (<1000 ng/mL); Barbiturate Urine VISTA NEGATIVE (< 200 ng/mL); Benzodiazepine Urine VISTA NEGATIVE (< 200 ng/mL); Cocaine Urine VISTA NEGATIVE (< 300 ng/mL); Ecstacy Urine VISTA NEGATIVE (< 500 ng/mL); Methadone Urine VISTA NEGATIVE (< 300 ng/mL); PCP Urine VISTA NEGATIVE (< 25 ng/mL); THC Urine VISTA NEGATIVE (< 50 ng/mL); Vista UDS pH Range 6
== END ==
PROVIDERS: PCP Internal Medicine; Referring Provider Obstetrics & Gynecology; Visit Provider Obstetrics & Gynecology
DX: O13.9 Gestational [pregnancy-induced] hypertension without significant proteinuria, unspecified trimester (principal); O09.90 Supervision of high risk pregnancy, unspecified, unspecified trimester; Z3A.00 Weeks of gestation of pregnancy not specified; Z87.59 Personal history of other complications of pregnancy, childbirth and the puerperium
CPT/HCPCS: 36415; 80053; 80307; 82570; 84156; 87086; 87088

== ENCOUNTER 2022-02-06 15:40 | Outpatient (CLI) | payer MEDICAID, SELFPAY ==
[2022-02-06 16:50] LABS: Absolute Lymphocyte Count 1.81 X10^3/uL (0.83-4.51); Absolute Neutrophil Count 7.1 X10^3/uL (2.0-7.7); Basophil# 0.02 X10^3/uL; Basophil% 0.2 % (0-1); Eosinophil# 0.07 X10^3/uL; Eosinophils% 0.7 % (0-5); Hematocrit 35.6 % (37-47); Hemoglobin 12.6 g/dL (12.0-15.0); Lymphocyte # 1.81 X10^3/ul (0.83-4.51); Lymphocyte % 18.9 % (19-41); Mean Corp Hgb Conc 35.4 g/dL (32-36); Mean Corpuscular Hgb 31.5 pg (27.0-32.0); Mean Platelet Vol. 9.2 fl (6.2-12.0); Monocyte# 0.49 X10^3/uL; Monocyte% 5.1 % (0-10); NRBC Flagged by Analyzer 0 % (0-5); Neutrophil % 74.4 % (47-70); Platelet Count 224 K/mm3 (150-450); RBC Distribution Width CV 13.2 % (11.6-14.6); RBC Distribution Width SD 43.4 fl (35.1-43.9); White Blood Count 9.6 K/mm3 (4.4-11.0)
[2022-02-06 17:12] LABS: Glucose Challenge Gest 1H 50g 141 mg/dL (70-140)
== END 2022-02-06 23:59 | disposition home or self-care (01) ==
LOC: LAB 15:40
PROVIDERS: PCP Internal Medicine; Referring Provider Nurse Practitioner Women's Health; Visit Provider Nurse Practitioner Women's Health
DX: Z13.1 Encounter for screening for diabetes mellitus (principal)
CPT/HCPCS: 36415; 82950; 85025

== ENCOUNTER 2022-02-13 09:45 | Outpatient (CLI) | payer MEDICAID, SELFPAY ==
[2022-02-13 10:47] LABS: Glucose GTT-Gestation. Fasting 106 mg/dL (<105)
[2022-02-13 11:45] LABS: Glucose GTT-Gestational 1 Hr 193 mg/dL (<190)
[2022-02-13 13:02] LABS: Glucose GTT-Gestational 2 Hr 172 mg/dL (<165)
[2022-02-13 13:50] LABS: Glucose GTT-Gestational 3 Hr 93 L (<145)
== END 2022-02-13 23:59 | disposition home or self-care (01) ==
LOC: LAB 09:46
PROVIDERS: PCP Internal Medicine; Visit Provider Obstetrics & Gynecology
DX: O99.810 Abnormal glucose complicating pregnancy (principal); Z3A.00 Weeks of gestation of pregnancy not specified
CPT/HCPCS: 36415; 82951; 82952

== ENCOUNTER 2022-02-28 12:58 | Outpatient (RCR) | payer MEDICAID, SELFPAY | END 2022-03-10 23:59 | LOC: DC 12:58 | PROVIDERS: PCP Internal Medicine; Referring Provider Nurse Practitioner Women's Health; Visit Provider Nurse Practitioner Women's Health | DX: O24.419 Gestational diabetes mellitus in pregnancy, unspecified control (principal); Z3A.00 Weeks of gestation of pregnancy not specified | CPT/HCPCS: 97802 ==

== ENCOUNTER 2022-03-21 15:54 | Outpatient (RCR) | payer MEDICAID, SELFPAY | END 2022-04-10 23:59 | LOC: DC 15:54 | PROVIDERS: PCP Internal Medicine; Referring Provider Nurse Practitioner Women's Health; Visit Provider Nurse Practitioner Women's Health | DX: O24.419 Gestational diabetes mellitus in pregnancy, unspecified control (principal); Z3A.00 Weeks of gestation of pregnancy not specified | CPT/HCPCS: 97803 ==

== ENCOUNTER → 2022-04-03 | Outpatient (CLI) | payer MEDICAID, SELFPAY ==
--- NOTE | 2022-04-03 14:18 | US_ITS ---
EXAM: US , LIMITED CLINICAL INDICATION: growth @ 36 weeks TECHNIQUE: Real-time limited ultrasound of the maternal uterus with image documentation. This report was created using [employer] report generation technology. COMPARISON: None. FINDINGS: FETUS: Single live intrauterine fetus, cephalic presentation. heart rate 143 bpm. measurements are fairly symmetric and consistent with 35 weeks 6 days which correlates well to 36 weeks 3 days clinical EGA. The head measurements were difficult to obtain but they are within range for the other measurements. Estimated weight 2873 g or 6 lbs. 5 oz., 47th percentile. KARLENE: Sonographic KARLENE May 02, 2018. PLACENTA: Posterior placenta, no evidence of previa. AMNIOTIC FLUID: 4 quadrant ARACELY 12.6 cm. Deepest vertical pocket 4.2 cm, within normal limits. CERVIX: Cervix length is not well seen. US/OB Limited With Biometrics IMPRESSION: No acute complications of are identified. Single live intrauterine fetus, cephalic position. Symmetric measurements. Electronically Signed: Ana Prakash MD at 6:28 EDT ,
== END | disposition home or self-care (01) ==
LOC: OPUS 14:17
PROVIDERS: PCP Internal Medicine; Visit Provider Nurse Practitioner Women's Health
DX: O24.419 Gestational diabetes mellitus in pregnancy, unspecified control (principal)
CPT/HCPCS: 76816; 87077; 87081; 87186

== ENCOUNTER 2022-04-23 05:10 | Inpatient (IN) | payer MEDICAID, SELFPAY ==
[2022-04-23] VITALS (17 sets, daily range): BP systolic 103–158; BP diastolic 56–81; PULSE 56–78; RESP 15–18; TEMP 35.7–36.7; O2SAT 94–100; BMI 36.6
[2022-04-23] MEDS: Lactated Ringers 1,000 ML 999 ML IV (05:40)
[2022-04-23] MEDS: Acetaminophen 500 MG Tablet 1000 MG PO ×3 (05:57→18:01)
[2022-04-23 06:03] LABS: Absolute Lymphocyte Count 2.25 X10^3/uL (0.83-4.51); Absolute Neutrophil Count 5.9 X10^3/uL (2.0-7.7); Basophil# 0.01 X10^3/uL; Basophil% 0.1 % (0-1); Eosinophil# 0.07 X10^3/uL; Eosinophils% 0.8 % (0-5); Hematocrit 39.2 % (37-47); Hemoglobin 13.4 g/dL (12.0-15.0); Lymphocyte # 2.25 X10^3/ul (0.83-4.51); Lymphocyte % 25.5 % (19-41); Mean Corp Hgb Conc 34.2 g/dL (32-36); Mean Corpuscular Hgb 30.8 pg (27.0-32.0); Mean Corpuscular Volume 90.1 fL (81-99); Monocyte# 0.55 X10^3/uL; Monocyte% 6.2 % (0-10); NRBC Flagged by Analyzer 0 % (0-5); Neutrophil % 66.8 % (47-70); Platelet Count 200 K/mm3 (150-450); RBC Distribution Width CV 13.9 % (11.6-14.6); RBC Distribution Width SD 45.6 fl (35.1-43.9); Red Blood Count 4.35 M/mm3 (4.2-5.4); White Blood Count 8.8 K/mm3 (4.4-11.0)
[2022-04-23 06:11] LABS: Bedside Glucose 73 mg/dL (74-106)
[2022-04-23] MEDS: Lactated Ringers 1,000 ML 150 ML IV (06:45)
[2022-04-23] MEDS: Sodium Citrate/Citric Acid 30 ML UDC PO (07:11)
[2022-04-23] MEDS: Cefazolin 2 GM in 0.9% Normal Saline 100 ML IV (07:21)
--- NOTE | 2022-04-23 07:34 | HP.PCM.OB_ITS ---
HPI - General General Date of Admission: 04/23/22 HPI Narrative TOMAS WELSH, is a 26 F who presents for RLTCS previous declines TOLAC. GDMA2 well controlled with insulin. Maternal Data Information KARLENE Calculator Estimated Delivery Date Method Current WG Current Estimate 04/28/22 LMP (Certain) 39w 2d Other Estimates 05/03/22 Ultrasound #1 38w 4d PFSH PFSH Medical History Bartholin gland cyst Gestational diabetes PCOS (polycystic ovarian syndrome) Positive GBS test Home Medications multivitamin no.47-iron fum 27 mg-folate no.1 1 mg-dha 300 mg capsule 1 cap PO DAILY cap 06/23/19 [History Last Taken Unknown] cholecalciferol (vitamin D3) 50 mcg (2,000 unit) capsule 50 mcg PO DAILY 09/15/20 [History Last Taken Unknown] aspirin 81 mg tablet,delayed release 81 mg PO DAILY 11/17/21 [History Last Taken Unknown] blood-glucose meter #1 ea 02/13/22 [Rx Last Taken Unknown] pen needle, diabetic 32 gauge x 5/32 #50 ea 03/16/22 [Rx Last Taken Unknown] pen needle, diabetic 32 gauge x 5/32 #100 ea 03/19/22 [Rx Last Taken Unknown] blood sugar diagnostic #100 ea 03/20/22 [Rx Last Taken Unknown] insulin degludec [Tresiba FlexTouch U-100] 30 unit SUBCUT DAILY 04/23/22 [History Last Taken Unknown] insulin lispro [Humalog KwikPen Insulin] 10 unit SUBCUT TID 04/23/22 [History Last Taken Unknown] zinc 50 mg PO DAILY 04/23/22 [History Last Taken Unknown] Allergy/AdvReac Type Severity Reaction Status Date / Time No Known Allergies Allergy Verified 04/17/22 15:49 Family History Father Hypertension Surgical History H/O section H/O wisdom tooth extraction Social History adopted: No household members: family current occupation: [employer] current occupational exposures/hazards: No pets and animals: Yes history of recent travel: No sexually active: Yes Smoking Status: Never smoker second hand exposure: No alcohol intake: current alcohol intake frequency: a few times a month substance use type: does not use diet: vegetarian seatbelt use: always do you feel safe at home: Yes additional social history: Fianc?- Abdulkadir- [employer] History 2 Elective abortions Hx Para 1 Spontaneous abortions Hx # Term Pregnancies Ectopic pregnancies Hx # Pregnancies Multiple births # of living children 1 Past Pregnancies Del. Date Name GA/Weeks Outcome Route Bth Weight Infant Gen Labor Lgth Anesthesia Del Locatn Provider FOB 01/16/20 Chema 39 live - full term 8lbs 6oz Male spinal [facility] Dr. Lluvia Panchal Delivery Date: 01/16/20 GHTN, Breech Nichole Trejo Visit Details Expected Delivery Route/Plan RLTCS Labor Preferences- CB/BF classes: no labor support person: Abdulkadir labor intervention preferences: [] pain management options preferred: [] cut cord/dad catch: [] : yes PP control planned: discussed discussed possible routes of delivery and associated risks: [] special requests: [] Plans Covid status: not vaccinated, declines vaccine Flu vaccine: declines Tdap vaccine: given Rhogam: na LARC form signed: yes Problem list reviewed and updated with the most current plan of care details and appropriate orders placed. Relevant counseling for the gestational age provided. Continue routine care and follow up unless otherwise noted in visit notes/problem list details OB Flowsheet Initial Weight: 220 lb Date -?-?-?-?-?-?-?-?-?-?-?-?- EGA Weight BP Urine Prot -?-?-?-?-?-?-?-?--?-?-?-?- Glucose FHR FuHt Pres Dilation -?-?-?-?-?-?-?-?-?-?-?-?- Effaced St Visit Note 09/20/21 -?-?-?-?-?-?-?-?-?-?-?-?- 8w 4d 220 lb (+0 oz) -?-?-?-?-?-?-?-?-?-?-?-?- 163 -?-?-?-?-?-?-?-?-?-?-?-?- JV- no lof, vagi nal bleeding, or cramping. CRL14 mm 7w6d JV- no lof, vaginal bleeding , or cramping. CRL14 mm 7w6d. KARLENE is consistent with LMP. (8 weeks 4d) 10/20/21 -?-?-?-?-?-?-?-?-?-?-?-?- 12w 6d 222 lb (+2 lb) 132/78 -?-?-?-?-?-?-?-?-?-?-?-?- 170 -?-?-?-?-?-?-?-?-?-?-?-?- Sm- no vb lof cr amping 11/17/21 -?-?-?-?-?-?-?-?-?-?-?-?- 16w 6d 227 lb 2 oz (+7 lb 2 oz) 136/78 Negative -?-?-?-?-?-?-?-?-?-?-?-?- Negative 161 -?-?-?-?-?-?-?-?-?-?-?-?- JV- pt has anoth er bartholin gland flare up 12/21/21 -?-?-?-?-?-?-?-?-?-?-?-?- 21w 5d 229 lb (+9 lb) 130/88 Negative -?-?-?-?-?-?-?-?-?-?-?-?- Negative 138 -?-?-?-?-?-?-?-?-?-?-?-?- JV- rpt anatomy needed to day. no complaints. bartholin gland area improved. 01/09/22 -?-?-?-?-?-?-?-?-?-?-?-?- 24w 3d 231 lb 8 oz (+11 lb 8 oz) 118/64 Negative -?-?-?-?-?-?-?-?-?-?-?-?- Negative 148 -?-?-?-?-?-?-?-?-?-?-?-?- MH-No VB, MARIEF. G ood FM. Denies concerns 02/06/22 -?-?-?-?-?-?-?-?-?-?-?-?- 28w 3d 233 lb 6 oz (+13 lb 6 oz) 118/72 Trace -?-?-?-?-?-?-?-?-?-?-?-?- Negative 143 28 -?-?-?-?-?-?-?-?-?-?-?-?- MH-No VB, HAMILTON. G ood Fm. 28 wk labs today, tdap, larc. 02/27/22 -?-?-?-?-?-?-?-?-?-?-?-?- 31w 3d 233 lb 6 oz (+13 lb 6 oz) 110/84 Negative -?-?-?-?-?-?-?-?-?-?-?-?- Negative 145 -?-?-?-?-?-?-?-?-?-?-?-?- JV- pt has newly diagnosed GDM, plans to see Dr Rob 1st week of March and [employer] worker tomorrow. wants to do rpt section. 03/20/22 -?-?-?-?-?-?-?-?-?-?-?-?- 34w 3d 232 lb 6 oz (+12 lb 6 oz) 118/70 Negative -?-?-?-?-?-?-?-?-?-?-?-?- Negative 140 -?-?-?-?-?-?-?-?-?-?-?-?- :No VB, MARIEF. G ood FM. Reactive NST. Started insulin yesterday. Will do NST twice a week and growth US 35-36 wk. RCS scheduled. 03/23/22 -?-?-?-?-?-?-?-?-?-?-?-?- 34w 6d 230 lb (+10 lb) 108/80 Negative -?-?-?-?-?-?-?-?-?-?-?-?- Negative 140 -?-?-?-?-?-?-?-?-?-?-?-?- JV- NST reactive , no lof, vaginal bleeding ,or dec fm. 03/27/22 -?-?-?-?-?-?-?-?-?-?-?-?- 35w 3d 233 lb (+13 lb) 106/74 Negative -?-?-?-?-?-?-?-?-?-?-?-?- Negative 140 -?-?-?-?-?-?-?-?-?-?-?-?- -NST only reac tive 03/30/22 -?-?-?-?-?-?-?-?-?-?-?-?- 35w 6d 231 lb (+11 lb) 124/84 Negative -?-?-?-?-?-?-?-?-?-?-?-?- Negative 140 -?-?-?-?-?-?-?-?-?-?-?-?- JV- pt on 35 uni ts NPH at bedtime but will likely be starting a short acting insulin soon per Dr. Rob. NST reactive 04/03/22 -?-?-?-?-?-?-?-?-?-?-?-?- 36w 3d 229 lb (+9 lb) 128/80 -?-?-?-?-?-?-?-?-?-?-?-?- 140 -?-?-?-?-?-?-?-?-?-?-?-?- SM- no vb lof go od fm no regular ctx 04/06/22 -?-?-?-?-?-?-?-?-?-?-?-?- 36w 6d 231 lb 6 oz (+11 lb 6 oz) 128/76 Negative -?-?-?-?-?-?-?-?-?-?-?-?- Negative 140 -?-?-?-?-?-?-?-?-?-?-?-?- SM- no vb lof go od fm no regular ctx SM- no vb lof good fm no reg ular ctx BS fairly controlled SM- no vb lof good fm no reg ular ctx BS fairly controlled but still going up on insulin 04/10/22 -?-?-?-?-?-?-?-?-?-?-?-?- 37w 3d 229 lb 4 oz (+9 lb 4 oz) 120/80 Negative -?-?-?-?-?-?-?-?-?-?-?-?- Negative 120 -?-?-?-?-?-?-?-?-?-?-?-?- JV- reactive NST , pt stats that Dr. Rob is still adjusting glucose levels. for now will keep 39 week rpt section but may require early section if next week sugars are too uncontrolled (ex 2 hr pp 200 or higher) 04/13/22 -?-?-?-?-?-?-?-?-?-?-?-?- 37w 6d 233 lb 4 oz (+13 lb 4 oz) 124/70 Negative -?-?-?-?-?-?-?-?-?-?-?-?- Negative 140 -?-?-?-?-?-?-?-?-?-?-?-?- JV- reactive NST . no complaints today. 04/17/22 -?-?-?-?-?-?-?-?-?-?-?-?- 38w 3d 233 lb 6 oz (+13 lb 6 oz) 130/84 Negative -?-?-?-?-?-?-?-?-?-?-?-?- Negative 140 -?-?-?-?-?-?-?-?-?-?-?-?- JV- reactive nst . consent for sursgery signed. no complaints today. 04/19/22 -?-?-?-?-?-?-?-?-?-?-?-?- 38w 5d 234 lb (+14 lb) Negative -?-?-?-?-?-?-?-?-?-?-?-?- Negative 150 -?-?-?-?-?-?-?-?-?-?-?-?- JV- reactive nst . last visit today. no complaints. r now at 10,10,20 04/23/22 -?-?-?-?-?-?-?-?-?-?-?-?- 39w 2d 234 lb (+14 lb) 116/78 -?-?-?-?-?-?-?-?-?-?-?-?- -?-?-?-?-?-?-?-?-?-?-?-?- NST FHR Rate Baby A Baseline: 130 ROS Constitutional Constitutional: Reports systems reviewed and no addt'l complaints, except as documented Eyes Eyes: Denies change in vision ENT HEENT: Reports systems reviewed and no addt'l complaints, except as documented; Denies headache(s) Cardiovascular Cardiovascular: Reports systems reviewed and no addt'l complaints, except as documented; Denies chest pain or dyspnea Respiratory/Chest Respiratory/Chest: Reports systems reviewed and no addt'l complaints, except as documented Gastrointestinal Gastrointestinal: Reports systems reviewed and no addt'l complaints, except as documented; Denies abdominal pain Genitourinary Genitourinary: Reports systems reviewed and no addt'l complaints, except as documented, contractions Details: present (irregular) and movement Details: present; Denies dysuria or genital lesions Musculoskeletal Musculoskeletal: Reports systems reviewed and no addt'l complaints, except as documented Neurologic Neurologic: Reports systems reviewed and no addt'l complaints, except as documented Endocrine Endocrinology: Reports systems reviewed and no addt'l complaints, except as documented Vital Signs Vital Signs Vital Signs: 04/23/22 05:51 Temperature 98.0 F Temperature Source Temporal Pulse Rate 77 Respiratory Rate 16 Blood Pressure 116/78 Blood Pressure Mean 90 Blood Pressure Source Monitor Blood Pressure Position Semi-Fowlers Blood Pressure Location Right Arm Pulse Ox 97 Oxygen Delivery Method Room Air Weight Weight: 234 lb Body Mass Index (BMI) 36.6 Physical Exam Const alert, oriented x3, no apparent distress and healthy appearing HEENT normocephalic and moist oral mucous membranes Head and Scalp: atraumatic Neck full ROM, no lymphadenopathy, supple and thyroid normal General: trachea midline Lymph Lymphatic: no lymphadenopathy noted Chest inspection of chest normal Resp normal respiratory effort Cardio regular rate GI normal to inspection, nondistended, normoactive bowel sounds, soft to palpation and non-tender Inspection: gravid external exam normal Manual OB Exam: estimated gestational size appropriate, presentation cephalic, dilated, effaced and station Extremity normal to inspection General Extremity: Negative for edema Skin no rashes or lesions noted Neuro no focal motor deficits and deep tendon reflexes 2+ bilaterally Motor Exam: strength 5/5 throughout and clonus absent Psych mental status grossly normal Labs Labs Labs: Blood Type B POSITIVE Antibody Screen NEGATIVE Hct 39.2 % (37-47) Hgb 13.4 g/dL (12.0-15.0) Pap Smear Negative Obstetrics US Syphilis Total Ab Non-reactive Rubella IgG Antibody Equiv (Nonreactive) Hep Bs Antigen Non-Reactive (Nonreactive) Chlamydia DNA (LISBET) Negative (Negative) Neisseria gonorrhoeae DNA (LISBET) Negative (Negative) HIV 1&2 Antibody Non-Reactive (Nonreactive) Glucose 1 Hr 50 gm 141 mg/dL (70-140) H Rhogam given: No Miscellaneous Test Assessment & Plan (1) Positive GBS test: (2) Gestational diabetes: QUALIFIERS: Gestational diabetes mellitus control: unspecified Trimester: third trimester Qualified Code(s): O24.419 - Gestational diabetes mellitus in , unspecified control COMMENT: Twice weekly NSTs at 32 wk. growth US 36 wk pt started insulin 03/20/22, 04/03 nl growth (3) History of tetanus, diphtheria, and acellular pertussis booster vaccination (Tdap): COMMENT: 02/06/22 (4) History of gestational hypertension: COMMENT: ordered baseline labs, Baby ASA (5) Obesity affecting : QUALIFIERS: Trimester: second trimester Qualified Code(s): O99.212 - Obesity complicating , second trimester COMMENT: nl GCT at NOB (6) Supervision of high risk , antepartum: COMMENT: PRR KARLENE: 04/28/22 PC: Chema Rojas?: Abdulkadir (7) : QUALIFIERS: Weeks of gestation: 38 weeks Qualified Code(s): Z3A.38 - 38 weeks gestation of COMMENT: declines genetic and carrier, NOB labs nl. Anatomy US normal but limited, need FU to complete. FU nl (8) H/O section: COMMENT: desires RC/S at 39 weeks- prefers scheduled 04/23 @ 7:30am PLAN: plan RLTCS
--- NOTE | 2022-04-23 07:35 | OP.PCM_ITS ---
Assessment & Plan (1) Positive GBS test: (2) Gestational diabetes: QUALIFIERS: Gestational diabetes mellitus control: unspecified Trimester: third trimester Qualified Code(s): O24.419 - Gestational diabetes mellitus in , unspecified control COMMENT: Twice weekly NSTs at 32 wk. growth US 36 wk pt started insulin 03/20/22, 04/03 nl growth (3) History of tetanus, diphtheria, and acellular pertussis booster vaccination (Tdap): COMMENT: 02/06/22 (4) History of gestational hypertension: COMMENT: ordered baseline labs, Baby ASA (5) Obesity affecting : QUALIFIERS: Trimester: second trimester Qualified Code(s): O99.212 - Obesity complicating , second trimester COMMENT: nl GCT at NOB (6) Supervision of high risk , antepartum: COMMENT: PRR KARLENE: 04/28/22 PC: Chema Rojas?: Abdulkadir (7) : QUALIFIERS: Weeks of gestation: 38 weeks Qualified Code(s): Z3A.38 - 38 weeks gestation of COMMENT: declines genetic and carrier, NOB labs nl. Anatomy US normal but limited, need FU to complete. FU nl (8) H/O section: COMMENT: desires RC/S at 39 weeks- prefers scheduled 04/23 @ 7:30am (9) delivery delivered: COMMENT: RLTCS girl Beverly 39 GDMA2 Maternal Data Information KARLENE Calculator Estimated Delivery Date Method Current WG Current Estimate 04/28/22 LMP (Certain) 39w 2d Other Estimates 05/03/22 Ultrasound #1 38w 4d Final KARLENE Source: LMP Details Operative Information Pre-Operative Diagnosis: Previous Post-Operative Diagnosis: same Indications for : Repeat Elective Classification: Scheduled Type of Anesthesia: Spinal Special Medications: none Antibiotic Given: Ancef 2 grams IV x1 Drain: Drake to straight drain Estimated Blood Loss: 800 Fluids Replaced: crystalloid Findings Description of Procedure: Spinal anesthesia was placed without difficulty. Drake catheter was placed. The patient was placed in the dorsal supine position with leftward tilt. Patient was prepped and draped in the normal sterile fashion. Pfannenstiel skin incision was made with the scalpel and carried through to the underlying layer of fascia with the scalpel. Fascia was nicked in the midline and the incision extended laterally. The rectus bellies were dissected off superiorly and inferiorly with out complication both sharply and bluntly. The peritoneum was entered digitally. The incision was stretched and a low transverse uterine incision was made with the scalpel. The 's head was delivered atraumatically followed by the anterior and posterior shoulders without complication the rest of the delivered. The cord was clamped and cut and the infant was handed off to awaiting nurse. The placenta was delivered spontaneously immediately following and was noted to be intact and have a three- vessel cord. The uterus was exteriorized cleared of all clots and debris, and the incision was closed in a double layer closure using #1 Monocryl. The ovaries and fallopian tubes were noted to be within normal limits. The uterus was returned to the maternal abdomen and gutters were cleared of all clots and debris. The peritoneum was closed with 3-0 Monocryl in a running fashion. Gloves were changed prior to fascial closure. Fascia was closed with 0 PDS in a running fashion. Subcutaneous tissue was copiously irrigated and the skin was closed with 3-0 Monocryl in a subcuticular fashion. Mepilex dressing was applied without complication. Patient was taken to recovery in stable condition. It was discussed with the patient that based on the clinical information obtained during this encounter, combined with her history, at this time I would recommend cesareans for future deliveries if further pregnancies are desired. Amniotic Membrane Rupture Type: Artificial Amniotic Fluid Description: Clear Placenta Disposition: [facility] Cord Vessel Description: 3 Vessels Cord Entanglement: None Delayed Cord Clamping: Yes Complications Risks of Surgery Discussed w/Patient: Bleeding, Infection, Need for Future C- Sections and Injury to surrounding structure(s) including bowel and bladder Vaginal Delivery Complication Complications: None Admit VTE Documentation VTE Present on Admission: No VTE Mechan Device Prophylaxis: SCD's Procedures Urinary/Genital [id number]: [id number] Delivery [facility]
[2022-04-23] MEDS: Oxytocin 30 units/NS 500 ml 30 UNITS/500 ML IV.SOLN 167 UNITS IV (09:07)
[2022-04-23] MEDS: Ketorolac 30 MG/ML Syringe IV ×3 (09:30→22:30)
--- NOTE | 2022-04-23 09:35 | PCM.DC ---
Discharge Instructions Diet Discharge Diet: No restrictions Activity Discharge Activity: May Not Drive (for 2 weeks or while taking narcotic pain medications.), May Shower and May Take a Tub Bath (in 7 days) May shower in (days): 0 May resume sexual activity in: 4-6 weeks Weight Bearing Status: Full weight bearing Lifting Restrictions: 20 pounds Dressing / Incision Call your doctor if your incision/area has: Continuous Slow Oozing, Sudden Increased Bleeding, Increased Pain/ Swelling, Increased Redness and Foul Smelling Discharge Call your doctor if you observe: Fever of 101 or Higher and Using more than 1 pad per hour (for 2 hours) Suture Line Care: Avoid Pulling/Pushing and Avoid Pinching/Bending Cleanse incision/area with: Soap & Water and Keep Dressing Clean & Dry Follow Up Care Please Follow Up With: Lluvia Kirkpatrick MD When: Call [phone] to make an appointment for an incision check in 1-2 weeks. Test Results: Test results from this visit will be discussed in further detail at your follow-up appointment, if applicable. Discharge Plan Admission Admit Date/Time: 04/23/22 05:10 Primary Reason for Your Visit: csection Attending Provider: Lluvia Kirkpatrick Primary Care Provider: Sheba Sullivan Discharge Orders/Prescriptions Prescriptions: New oxycodone-acetaminophen [Percocet] 5-325 mg tablet 1 tab PO Q6H PRN (Reason: pain) 7 Days Qty: 20 RF: 0 naproxen [naproxen] 500 MG tablet 500 mg PO BID PRN PRN (Reason: Pain) Qty: 30 RF: 1 No Action PNV-DHA 27 mg iron-1 mg -300 mg capsule 1 cap PO DAILY RF: 0 cholecalciferol (vitamin D3) 50 mcg (2,000 unit) capsule 50 mcg PO DAILY RF: 0 aspirin 81 mg tablet,delayed release (DR/EC) 81 mg PO DAILY RF: 0 (DME) True Metrix Glucose Test Strip Strip See Rx Instructions .ROUTE .MEDSUPPLY Qty: 100 RF: 4 (DME) pen needle, diabetic [BD Ultra-Fine Michelle Pen Needle] 32 gauge x 5/32 needle See Rx Instructions .ROUTE .MEDSUPPLY Qty: 100 RF: 1 zinc 50 mg Tablet 50 mg PO DAILY RF: 0 insulin lispro [Humalog KwikPen Insulin] 100 unit/mL insulin pen 10 unit subcut TID RF: 0 Tresiba FlexTouch U-100 100 unit/mL (3 mL) insulin pen 30 unit subcut DAILY RF: 0 (DME) blood-glucose meter [True Metrix Air Glucose Meter] Misc See Rx Instructions .ROUTE .MEDSUPPLY Qty: 1 RF: 0 (DME) pen needle, diabetic [BD Ultra-Fine Michelle Pen Needle] 32 gauge x 5/32 needle See Rx Instructions .ROUTE .MEDSUPPLY Qty: 50 RF: 1 Referrals / Follow Up: Sheba Sullivan MD [Primary Care Provider] - Disposition Disposition (needs filled in before D/C Order can be placed): Home, Self Care
--- NOTE | 2022-04-23 09:45 | NURSING ---
Patient given areli crackers and water per request. Denies symptoms of hypoglycemia.
[2022-04-23 09:56] LABS: Bedside Glucose 64 mg/dL (74-106)
[2022-04-23 11:21] LABS: Bedside Glucose 99 mg/dL (74-106)
[2022-04-23] MEDS: Lactated Ringers 1,000 ML 100 ML IV (12:09)
[2022-04-23] MEDS: 0.9% Saline Lock 10 ML Syringe IV (16:08)
[2022-04-23] MEDS: Enoxaparin 40 MG/0.4 ML Syringe SC (21:05)
--- NOTE | 2022-04-23 22:35 | NURSING ---
Pt bleeding was moderate at the 12 hour post-delivery check - left Drake catheter in until 2224 to be sure bleeding slowed.
[2022-04-24] MEDS: Acetaminophen 500 MG Tablet 1000 MG PO ×4 (00:39→18:51)
[2022-04-24 00:40] VITALS: BP 98/45; PULSE 75; RESP 16; TEMP 36.6; O2SAT 97
[2022-04-24 04:00] VITALS: BP 126/68; PULSE 68; RESP 16; TEMP 36.3; O2SAT 95
[2022-04-24] MEDS: 0.9% Saline Lock 10 ML Syringe IV (06:10)
[2022-04-24] MEDS: Ketorolac 30 MG/ML Syringe IV (06:10)
[2022-04-24 06:23] LABS: Hematocrit 33.9 % (37-47); Hemoglobin 11.7 g/dL (12.0-15.0); Mean Corp Hgb Conc 34.5 g/dL (32-36); Mean Corpuscular Hgb 31.4 pg (27.0-32.0); Mean Corpuscular Volume 90.9 fL (81-99); Mean Platelet Vol. 8.9 fl (6.2-12.0); Platelet Count 167 K/mm3 (150-450); RBC Distribution Width CV 14.5 % (11.6-14.6); RBC Distribution Width SD 47.9 fl (35.1-43.9); Red Blood Count 3.73 M/mm3 (4.2-5.4); White Blood Count 7.8 K/mm3 (4.4-11.0)
--- NOTE | 2022-04-24 06:52 | PN.OBGYN_ITS ---
Subjective Subjective Patient doing well without complaints. Tolerating PO. Ambulating and voiding without difficulty. feeding well. Denies chest pain, shortness of breath, calf pain/swelling, fevers, chills, lightheadedness. Objective Data Objective Data Vital Signs: Vital Signs Temp Pulse Resp BP Pulse Ox 97.3 F L 68 16 126/68 H 95 04/24/22 04:00 04/24/22 04:00 04/24/22 04:00 04/24/22 04:00 04/24/22 04:00 Oxygen Delivery Method Room Air Weight: 234 lb Body Mass Index (BMI) 36.6 Intake & Output: Intake and Output for Last 24 Hours 04/22/22 04/23/22 04/24/22 23:59 23:59 23:59 Intake Total 6058.33 / 6058.33 Output Total 3000 / 3000 Balance 3058.33 / 3058.33 Lab / Micro Data Result Diagrams: 04/24/22 06:18 Labs: Laboratory Results - last 24 hr 04/23/22 05:40: Blood Type B POSITIVE, Antibody Screen NEGATIVE 04/23/22 09:24: POC Glucose 64 L 04/23/22 10:41: POC Glucose 99 04/24/22 06:18: WBC 7.8, RBC 3.73 L, Hgb 11.7 L, Hct 33.9 L, MCV 90.9, MCH 31.4, MCHC 34.5, RDW Std Deviation 47.9 H, RDW Coeff of Rakesh 14.5, Plt Count 167, MPV 8.9 Micro: Microbiology 04/23/22 05:45 Nasal Secretion SARS-CoV-2 Antigen (Rapid) - Final ROS Constitutional Constitutional: Reports systems reviewed and no addt'l complaints, except as documented Cardiovascular Cardiovascular: Reports systems reviewed and no addt'l complaints, except as documented Respiratory/Chest Respiratory/Chest: Reports systems reviewed and no addt'l complaints, except as documented Gastrointestinal Gastrointestinal: Reports systems reviewed and no addt'l complaints, except as documented Physical Exam Const alert, oriented x3 and no apparent distress HEENT Head and Scalp: atraumatic Resp normal respiratory effort GI soft to palpation and non-tender Bimanual Exam - Vag & Uterus: uterus non-tender Uterus Palpation: uterus fundus firm (below Umbilicus) Assessment & Plan (1) delivery delivered: COMMENT: RLTCS girl Beverly 39 GDMA2 (2) Gestational diabetes: QUALIFIERS: Gestational diabetes mellitus control: unspecified T rimester: third trimester Qualified Code(s): O24.419 - Gestational diabetes mellitus in , unspecified control COMMENT: Twice weekly NSTs at 32 wk. growth US 36 wk pt started insulin 03/20/22, 04/03 nl growth PLAN: s/p LTCS PPD # 1 1. routine post care 2. breast feeding- support given 3. rh positive 4. rubella immune
[2022-04-24 07:01] LABS: Bedside Glucose 112 mg/dL (74-106)
[2022-04-24 09:50] VITALS: BP 120/75; PULSE 66; RESP 16; TEMP 36.4; O2SAT 97
[2022-04-24] MEDS: Senna/Docusate Sodium 1 Tablet PO (10:59)
[2022-04-24 13:25] VITALS: BP 113/70; PULSE 66; RESP 16; TEMP 36.6; O2SAT 95
[2022-04-24] MEDS: Naproxen 500 MG Tablet PO ×2 (14:15→22:29)
[2022-04-24] MEDS: Enoxaparin 40 MG/0.4 ML Syringe SC (20:53)
[2022-04-24 20:56] VITALS: BP 128/78; PULSE 54; RESP 16; TEMP 36.3; O2SAT 99
[2022-04-25] MEDS: Acetaminophen 500 MG Tablet 1000 MG PO ×3 (00:34→12:35)
[2022-04-25 02:19] VITALS: BP 130/82; PULSE 68; RESP 16; TEMP 36.2
[2022-04-25] MEDS: Naproxen 500 MG Tablet PO ×2 (06:23→14:45)
--- NOTE | 2022-04-25 07:00 | PN.OBGYN_ITS ---
Subjective Subjective Patient doing well without complaints. Tolerating PO. Ambulating and voiding without difficulty. feeding well. Denies chest pain, shortness of breath, calf pain/swelling, fevers, chills, lightheadedness. Objective Data Objective Data Vital Signs: Vital Signs Temp Pulse Resp BP Pulse Ox 97.2 F L 68 16 130/82 H 99 04/25/22 02:19 04/25/22 02:19 04/25/22 02:19 04/25/22 02:19 04/24/22 20:56 Oxygen Delivery Method Room Air Weight: 234 lb Body Mass Index (BMI) 36.6 Intake & Output: Intake and Output for Last 24 Hours 04/23/22 04/24/22 04/25/22 23:59 23:59 23:59 Intake Total 6058.33 / 6058.33 Output Total 3000 / 3000 2200 / 2200 Balance 3058.33 / 3058.33 -2200 / -2200 Lab / Micro Data Result Diagrams: 04/24/22 06:18 Labs: Laboratory Results - last 24 hr 04/24/22 06:51: POC Glucose 112 H Micro: Microbiology 04/23/22 05:45 Nasal Secretion SARS-CoV-2 Antigen (Rapid) - Final ROS Constitutional Constitutional: Reports systems reviewed and no addt'l complaints, except as documented Cardiovascular Cardiovascular: Reports systems reviewed and no addt'l complaints, except as documented Respiratory/Chest Respiratory/Chest: Reports systems reviewed and no addt'l complaints, except as documented Gastrointestinal Gastrointestinal: Reports systems reviewed and no addt'l complaints, except as documented Physical Exam Const alert, oriented x3 and no apparent distress HEENT Head and Scalp: atraumatic Resp normal respiratory effort GI soft to palpation and non-tender Inspection: incision intact, healing well and drainage (none) Bimanual Exam - Vag & Uterus: uterus non-tender Uterus Palpation: uterus fundus firm (below Umbilicus) Assessment & Plan (1) delivery delivered: COMMENT: RLTCS girl Beverly 39 GDMA2 (2) Gestational diabetes: QUALIFIERS: Gestational diabetes mellitus control: unspecified Tr imester: third trimester Qualified Code(s): O24.419 - Gestational diabetes mellitus in , unspecified control COMMENT: Twice weekly NSTs at 32 wk. growth US 36 wk pt started insulin 03/20/22, 04/03 nl growth PLAN: Plan s/p LTCS PPD # 2 1. routine post care 2. breast feeding- support given 3. rh positive 4. rubella immune
[2022-04-25 07:46] VITALS: BP 118/67; PULSE 73; RESP 18; TEMP 36.4; O2SAT 96
[2022-04-25] MEDS: Senna/Docusate Sodium 1 Tablet PO (09:32)
[2022-04-25 12:43] VITALS: BP 138/87; PULSE 75; RESP 16; TEMP 36.5; O2SAT 98
--- NOTE | 2022-04-25 14:26 | NURSING ---
Pt scheduled follow up appointment for 2 and 6 weeks at [facility].
== END 2022-04-25 15:40 | disposition home or self-care (01) | DRG 540 ==
PROVIDERS: Admitting Provider Obstetrics & Gynecology; PCP Internal Medicine; Visit Provider Obstetrics & Gynecology
PROC: 10D00Z1 Extraction of Products of Conception, Low, Open Approach (ICD-10-PCS; CPT 59514; principal; 2022-04-23 07:15)
DX: O34.219 Maternal care for unspecified type scar from previous cesarean delivery (principal); O24.424 Gestational diabetes mellitus in childbirth, insulin controlled; Z79.4 Long term (current) use of insulin; O99.824 Streptococcus B carrier state complicating childbirth; O99.214 Obesity complicating childbirth; Z20.822 Contact with and (suspected) exposure to COVID-19; Z37.0 Single live birth; Z3A.38 38 weeks gestation of pregnancy; Z79.82 Long term (current) use of aspirin
CPT/HCPCS: 59050; 82962; 85025; 85027; 86850; 86900; 86901; 87426; 99218; J7120; A4216; G0378

== ENCOUNTER 2022-05-11 10:06 | Day surgery (SDC) | payer MEDICAID, SELFPAY ==
[2022-05-11] VITALS (7 sets, daily range): BP systolic 108–128; BP diastolic 67–88; PULSE 51–78; RESP 14–104; TEMP 36.3–36.6; O2SAT 91–100; BMI 34.2
--- NOTE | 2022-05-11 05:53 | HP.PCM_ITS ---
HPI - General HPI Narrative TOMAS WELSH, is a 27 F who presentswith left sided bartholin's glad cyst recurrent. she has had it drained twice and now has recurred. she recently had a cs for delivery over two weeks ago. she has been on antibiotics for three days. she denies any drainage but is having pain in the area. [facility] Medical History (Updated 05/11/22 @ 05:[address] Lluvia Kirkpatrick MD) Bartholin gland cyst Gestational diabetes Hypertension PCOS (polycystic ovarian syndrome) Positive GBS test Wears glasses Home Medications multivitamin no.47-iron fum 27 mg-folate no.1 1 mg-dha 300 mg capsule (PNV-DHA) 1 cap PO DAILY 06/23/19 [History Last Taken Unknown] cholecalciferol (vitamin D3) 50 mcg (2,000 unit) capsule 50 mcg PO DAILY 09/15/20 [History Last Taken Unknown] zinc 50 mg tablet 50 mg PO DAILY 04/23/22 [History Last Taken Unknown] ascorbic acid (vitamin C) 500 mg capsule 500 mg PO DAILY 05/08/22 [History Last Taken Unknown] doxycycline monohydrate 100 mg capsule 100 mg PO BID #28 caps 05/08/22 [Rx Last Taken Unknown] metronidazole 500 mg tablet 500 mg PO TID 7 days #21 tabs 05/08/22 [Rx Last Taken Unknown] naproxen 250 mg tablet 250 mg PO BID PRN Pain 05/10/22 [History Last Taken Unknown] Allergy/AdvReac Type Severity Reaction Status Date / Time No Known Allergies Allergy Verified 05/10/22 13:49 Family History Father Hypertension Surgical History (Updated 05/10/22 @ 13:55 by Susana Stock) H/O section H/O wisdom tooth extraction Social History adopted: No household members: family current occupation: [employer] current occupational exposures/hazards: No pets and animals: Yes history of recent travel: No sexually active: Yes Smoking Status: Never smoker second hand exposure: No alcohol intake: current alcohol intake frequency: a few times a month substance use type: does not use diet: vegetarian seatbelt use: always do you feel safe at home: Yes additional social history: Fianc?- [employer] ROS Review of Systems ROS Unobtainable: due to mental status and other Constitutional Constitutional: Reports systems reviewed and no addt'l complaints, except as documented; Denies as per HPI, change in weight, fatigue, fever(s), malaise, weakness or other Eyes Eyes: Reports systems reviewed and no addt'l complaints, except as documented; Denies as per HPI, change in vision or other ENT HEENT: Reports systems reviewed and no addt'l complaints, except as documented Respiratory/Chest Respiratory/Chest: Reports systems reviewed and no addt'l complaints, except as documented Gastrointestinal Gastrointestinal: Reports systems reviewed and no addt'l complaints, except as documented and as per HPI Genitourinary Genitourinary: Reports as per HPI Musculoskeletal Musculoskeletal: Reports systems reviewed and no addt'l complaints, except as documented Neurologic Neurologic: Reports systems reviewed and no addt'l complaints, except as documented Psychiatric Psychiatric: Reports systems reviewed and no addt'l complaints, except as documented Endocrine Endocrinology: Reports systems reviewed and no addt'l complaints, except as documented Hematologic/Lymphatic Hematologic/Lymphatic: Reports systems reviewed and no addt'l complaints, except as documented Physical Exam Const alert, oriented x3 and no apparent distress HEENT normocephalic Head and Scalp: atraumatic Eyes EOMs intact bilaterally and conjunctivae normal Neck full ROM, no lymphadenopathy, supple and thyroid normal General: trachea midline Lymph Lymphatic: no lymphadenopathy noted Resp normal respiratory effort, no retractions, no use of accessory muscles and clear to auscultation bilaterally Cardio regular rhythm GI normal to inspection, nondistended, normoactive bowel sounds, soft to palpation, non-distended and no masses Inspection: Negative for abdominal distention External Female Exam: Bartholin's cyst left, erythema, externally tender and external swelling Back/Spine no CVA tenderness Extremity normal to inspection Skin no rashes or lesions noted Neuro moves all extremities and deep tendon reflexes 2+ bilaterally Psych mental status grossly normal Assessment & Plan Assessment/Plan (1) Bartholin's gland abscess: PLAN: Plan After discussing the patient's diagnosis and treatment plan options, patient wishes to proceed with surgical management. I have discussed with the patient the risks, benefits, and alternatives of the procedure which include but are not limited to risks of anesthesia, bleeding, infection, possible damage to bowel, bladder, or surrounding vasculature which could lead to additional surgery to evaluate any complications. Patient agrees to procedure and wishes to proceed. ACOG/uptodate references given for additional information regarding procedure.
[2022-05-11] MEDS: Lactated Ringers 1,000 ML 125 ML IV (10:30)
[2022-05-11 10:47] LABS: Absolute Lymphocyte Count 2.01 X10^3/uL (0.83-4.51); Absolute Neutrophil Count 3.3 X10^3/uL (2.0-7.7); Basophil# 0.04 X10^3/uL; Basophil% 0.7 % (0-1); Eosinophil# 0.12 X10^3/uL; Eosinophils% 2.1 % (0-5); Hematocrit 42.1 % (37-47); Hemoglobin 14.6 g/dL (12.0-15.0); Lymphocyte # 2.01 X10^3/ul (0.83-4.51); Lymphocyte % 34.8 % (19-41); Mean Corp Hgb Conc 34.7 g/dL (32-36); Mean Corpuscular Hgb 30.9 pg (27.0-32.0); Mean Platelet Vol. 8.7 fl (6.2-12.0); Monocyte# 0.31 X10^3/uL; Monocyte% 5.4 % (0-10); NRBC Flagged by Analyzer 0 % (0-5); Neutrophil # 3.29 X10^3/uL (2.7-7.7); Neutrophil % 56.8 % (47-70); Platelet Count 273 K/mm3 (150-450); RBC Distribution Width CV 12.5 % (11.6-14.6); Red Blood Count 4.73 M/mm3 (4.2-5.4); White Blood Count 5.8 K/mm3 (4.4-11.0)
[2022-05-11 10:48] LABS: Internal QC Validated? YES +Cl - CLEAR BKGD; Pregnancy, Urine Negative Negative
--- NOTE | 2022-05-11 11:45 | ABS_PTH ---
PATIENT: TOMAS WELSH LOC: [facility] – [place] U#:[id number] AGE/SX: 27/F ROOM: RE05/11/[address]: Dr. Lluvia Kirkpatrick MD : 1995 BED: DIS: 05/11/2022 SPEC #: [id number] RECD: 05/11/22 17:24 STATUS: KEYANA RENawaf #: [id number] ROSIBEL: 05/11/22 11:[address]: Lluvia Kirkpatrick DEPT: SURGICAL PATHOLOGY RECD BY: David Hernandez ENTERED: 05/15/22 10:07 SP TYPE: Abscess OTHR DR: Sheba Sullivan MD Tissues: Bartholin's gland cyst Procedures: Surgery Specimen Level IV HEADER OPERATION: Bartholin gland marsupilization PRE-OP DIAGNOSIS: Bartholin?s gland abscess TISSUE SUBMITTED: Bartholin?s gland abscess MICROSCOPIC DIAGNOSIS Bartholin?s gland abscess, excision: Benign glandular epithelium with associated acute and chronic inflammation consistent with inflamed Bartholin?s gland. AM:ronen 05/16/2022 MICROSCOPIC DESCRIPTION Slides are reviewed. GROSS DESCRIPTION Received in fixative is one container labeled with the patient's name and designated Bartholin's gland abscess. The specimen consists of light leach mucosa with attached leach soft tissue measuring 2 x 1 x 0.8 cm. The specimen is inked, bisected and totally submitted in one cassette. / AM:rnoen 05/15/2022 TC:2 CPT: 85581
[2022-05-11] MEDS: Cefotetan 2 GM in 0.9% NS 100 ML IV (11:51)
[2022-05-11] MEDS: Bupivacaine Mpf 0.5% 30 ML VIAL (12:31)
[2022-05-11] MEDS: Silver Nitrate (BKC) 1 EACH (12:32)
--- NOTE | 2022-05-11 12:38 | PCM.OPRPT ---
Problems Associated Problem List Diagnoses (1) Bartholin's gland abscess: Report of Operation Date of Procedure: 05/11/22 Pre-Operative Diagnosis: bartholins gland abscess Post-Operative Diagnosis: same Surgery/Procedure Performed:: bartholin's gland maruspilization Description of Surgical Findings:: left bartholins abscess Surgeon: Lluvia Kirkpatrick Type of Anesthesia: General Special Medications: silver nitrate Specimen's removed: bartholins cyst wall Drains: none Estimated Blood Loss (mL): 75 Fluids Replaced: crystalloid Description of Procedure: Patient was placed under general anesthesia was prepped and draped in the normal sterile fashion in the dorsolithotomy position. Bartholin's gland was identified and an elliptical roe was made over the area where the incision would be made and the area was injected with Marcaine and then an elliptical incision made unroofing the top of the Bartholin's gland. The Bovie was used to help obtain hemostasis. The cyst wall and the overlying vulvar skin were stitched together in interrupted fashion with 3-0 Vicryl Rapide circumferentially. Excellent hemostasis was noted. Silver nitrate was applied to the skin to provide additional hemostasis at the skin edge. Cultures were sent. Patient tolerated the procedure well and was awoken and taken recovery in stable condition. Complications none Admit VTE Documentation VTE Present on Admission: No VTE Mechan Device Prophylaxis: SCD's VTE Pharm Prophylaxis ordered?: No Multi Select Codes Urinary/Genital Urinary/Genital CPT Codes: 96219 Bartholin's Marsupialization
--- NOTE | 2022-05-11 12:42 | DCINST_ITS ---
Discharge Instructions Diet Discharge Diet: No restrictions Activity Discharge Activity: Return to Normal Activity, May Shower and May Take a Tub Bath (after 2 weeks) May resume sexual activity in: 4-6 weeks Weight Bearing Status: Weight bearing as tolerated Lifting Restrictions: none Dressing / Incision Call your doctor if you observe: Fever of 101 or Higher, Using more than 1 pad per hour, Shortness of breath and Uncontrolled pain Follow Up Care Please Follow Up With: Lluvia Kirkpatrick MD When: Call [phone] to schedule appointment. Test Results: Test results from this visit will be discussed in further detail at your follow- up appointment, if applicable. Discharge Plan Admission Attending Provider: Lluvia Kirkpatrick Primary Care Provider: Sheba Sullivan Discharge Orders/Prescriptions Prescriptions: No Action PNV-DHA 27 mg iron-1 mg -300 mg capsule 1 cap PO DAILY cholecalciferol (vitamin D3) 50 mcg (2,000 unit) capsule 50 mcg PO DAILY ascorbic acid (vitamin C) 500 mg capsule 500 mg PO DAILY metronidazole 500 mg tablet 500 mg PO TID 7 Days Qty: 21 0RF doxycycline monohydrate 100 mg capsule 100 mg PO BID Qty: 28 0RF zinc 50 mg Tablet 50 mg PO DAILY naproxen [Naprosyn] 250 mg Tablet 250 mg PO BID PRN (Reason: Pain) Referrals / Follow Up: Sheba Sullivan MD [Primary Care Provider] - Disposition Disposition (needs filled in before D/C Order can be placed): Home, Self Care
== END 2022-05-11 14:38 | disposition home or self-care (01) ==
LOC: SDC 10:08 → AC 10:09
PROVIDERS: Anesthesiology; PCP Internal Medicine; Referring Provider Obstetrics & Gynecology; Visit Provider Obstetrics & Gynecology
PROC: (CPT 56740; principal; 2022-05-11 11:30)
DX: N75.1 Abscess of Bartholin's gland (principal)
CPT/HCPCS: 56420; 00940; 88304; 81025; 85025; 86850; 86900; 86901; 87070; 87075; 87205; 88305; J7120; J2405

== ENCOUNTER → 2022-07-19 | Outpatient (CLI) | payer MEDICAID, SELFPAY ==
[2022-07-25 15:09] LABS: HPV Reflexed? NOT INDICATED
== END | disposition home or self-care (01) ==
LOC: LABSPEC 15:04
PROVIDERS: PCP Internal Medicine; Referring Provider Obstetrics & Gynecology; Visit Provider Obstetrics & Gynecology
DX: Z12.4 Encounter for screening for malignant neoplasm of cervix (principal)
CPT/HCPCS: 88175; G0145

== ENCOUNTER → 2022-11-24 | Outpatient (CLI) | payer MEDICAID, SELFPAY ==
[2022-11-24 12:04] LABS: Hemoglobin A1c 5.2 % (3.8-5.6)
== END | disposition home or self-care (01) ==
LOC: LAB 11:20
PROVIDERS: PCP Internal Medicine; Visit Provider Obstetrics & Gynecology
DX: O24.419 Gestational diabetes mellitus in pregnancy, unspecified control (principal); Z3A.00 Weeks of gestation of pregnancy not specified
CPT/HCPCS: 36415; 83036

== ENCOUNTER → 2022-12-11 | Outpatient (CLI) | payer MEDICAID, SELFPAY ==
[2022-12-11 12:55] LABS: Glucose 2 Hour Postprandial 99 mg/dL (<140)
== END | disposition home or self-care (01) ==
LOC: LAB 09:47
PROVIDERS: PCP Internal Medicine; Referring Provider Obstetrics & Gynecology; Visit Provider Obstetrics & Gynecology
DX: O24.419 Gestational diabetes mellitus in pregnancy, unspecified control (principal); Z3A.00 Weeks of gestation of pregnancy not specified
CPT/HCPCS: 36415; 82950

== ENCOUNTER → 2023-12-21 | Outpatient (CLI) | payer MEDICAID, SELFPAY ==
--- OUTSIDE RECORDS SUMMARY | 2023-12-21 07:19 | XMS RPT_ITS | CCD ---
Author Name Unknown Address [address] [place] [address] Organization [facility] Care Team Providers Care Musical Instrument Supervisor Name Role Phone Sheba Hadley MD Primary Care Provider VIVIANA WHARTON Referring Unavailable SHEBA HADLEY Primary Care Unavailable VIVIANA WHARTON Attending Unavailable SHEBA HADLEY Primary Care Unavailable Medications Current Medications Medication Drug Class(es) Dates Sig (Normalized) Sig (Original) cephalexin 500 mg oral capsule (1 source) Cephalosporin Antibacterial Start: 06-17-2023 End: 06-27-2023 take 1 capsule by mouth four times daily at mealtime cephALEXin (KEFLEX) 500 mg capsule Indications: Toe infection Take 1 capsule by mouth four times daily for 10 days. Take with food. For toe infection 40 capsule 0 06/17/2023 06/27/2023 Active Completed/Discontinued Medications Medication Drug Class(es) Dates Sig (Normalized) Sig (Original) cholecalciferol, vitamin D3, (VITAMIN D3 ORAL) (2 sources) End: 06-17-2023 cholecalciferol, vitamin D3, (VITAMIN D3 ORAL) Take by mouth. 0 06/17/2023 Discontinued Problems Active Problems Problem Classification Problem Date Documented Da te Episodic/Chronic Anxiety disorders (2 sources) Anxiety; Translations: [Anxiety disorder, unspecified] Onset: 01-06-2017 01-06-2017 Chronic Genitourinary symptoms and ill-defined conditions (2 sources) Proteinuria; Translations: [Proteinuria, unspecified] Onset: 06-17-2023 06-17-2023 Episodic Immunizations and screening for infectious disease (4 sources) Patient encounter status; Translations: [Encounter for immunization] Onset: 06-17-2023 06-17-2023 Episodic Other nutritional; endocrine; and metabolic disorders (2 sources) Obesity; Translations: [Obesity, unspecified] Onset: 08-02-2014 08-02-2014 Chronic Skin and subcutaneous tissue infections (6 sources) Paronychia of toe; Translations: [Cellulitis of unspecified toe] Onset: 06-17-2023 06-17-2023 Episodic Past or Other Problems Problem Classification Problem Date Documented Da te Episodic/Chronic Cardiac dysrhythmias (2 sources) Palpitations; Translations: [Palpitations] Onset: 01-06-2017 01-06-2017 Episodic Other gastrointestinal disorders (2 sources) Chronic constipation; Translations: [Other constipation] Onset: 08-02-2014 08-02-2014 Episodic Other non-traumatic joint disorders (2 sources) Pain in right knee; Translations: [Pain in joint, lower leg] Onset: 08-02-2014 08-02-2014 Episodic Results Test Name Value Interpretation Reference Range Facil ity Vital Signs Date Time Vital Sign Value Performing Clinician Arnie cline 06-17-2023 12:57-0400 Body height 167.6 cm Viviana Wharton HOUSE PARENT.TIME CHECKER Work Phone: [facility] 06-17-2023 12:57-0400 Body weight 102.06 kg Viviana Wharton HOUSE PARENT.TIME CHECKER Work Phone: [facility] 06-17-2023 12:57-0400 Diastolic blood pressure 84 mm[Hg] Viviana Wharton HOUSE PARENT.TIME CHECKER Work Phone: [facility] 06-17-2023 12:57-0400 Heart rate 78 /min Viviana Wharton HOUSE PARENT.TIME CHECKER Work Phone: [facility] 06-17-2023 12:57-0400 Respiratory rate 16 /min Viviana Wharton HOUSE PARENT.TIME CHECKER Work Phone: [facility] 06-17-2023 12:57-0400 SaO2% (BldA) [Mass fraction] 97 % Viviana Wharton HOUSE PARENT.TIME CHECKER Work Phone: [facility] 06-17-2023 12:57-0400 Systolic blood pressure 128 mm[Hg] Viviana Wharton HOUSE PARENT.TIME CHECKER Work Phone: [facility] Encounters Encounter Date Encounter Type Care Provider Facility Start: 06-17-2023 End: 06-18-2023 ambulatory VIVIANA WHATRON Facility:[facility] Start: 06-17-2023 End: 06-17-2023 Office outpatient visit 15 minutes Viviana Wharton TIME CHECKER Work Phone: [facility] Plan of Treatment Date Care Activity Detail Author Start: 02-17-2031 Urine microalbumin profile DTAP,TDAP,TD (8 - Td or Tdap) [facility] Start: 07-19-2025 PAP TESTING PAP TESTING [facility] Start: 07-12-2023 Influenza vaccination INFLUENZA (#1) [facility] Start: 06-17-2023 End: 08-17-2023 HIV 1+2 Ab [Presence] in Serum or Plasma by Immunoassay [facility] Work Phone: Immunizations Immunization Date Immunization Notes Care Provider Marsha jimenez 02-17-2021 tetanus and diphther ia toxoids, adsorbed, preservative free, for adult use (5 Lf of tetanus toxoid and 2 Lf of diphtheria toxoid) Sheba Hadley MD Work Phone: [facility] 06-01-2009 human papilloma viru s vaccine, quadrivalent Sheba Hadley MD Work Phone: [facility] Work Phone: 06-01-2009 varicella virus vaccine Sheba Hadley MD Work Phone: [facility] Work Phone: 11-26-2008 human papilloma viru s vaccine, quadrivalent Sheba Hadley MD Work Phone: [facility] Work Phone: 07-07-2008 human papilloma viru s vaccine, quadrivalent Sheba Hadley MD Work Phone: [facility] Work Phone: 07-07-2008 Meningococcal, MCV4, unspecified conjugate formulation(groups A, C, Y and W-135) Sheba Hadley MD Work Phone: [facility] Work Phone: 07-07-2008 tetanus toxoid, redu katia diphtheria toxoid, and acellular pertussis vaccine, adsorbed Sheba Hadley MD Work Phone: [facility] Work Phone: 07-23-2000 diphtheria, tetanus toxoids and acellular pertussis vaccine Sheba Hadley MD Work Phone: [facility] Work Phone: 07-23-2000 measles, mumps and rubella virus vaccine Sheba Hadley MD Work Phone: [facility] Work Phone: 07-23-2000 poliovirus vaccine, inactivated Sheba Hadley MD Work Phone: [facility] Work Phone: 06-26-1999 varicella virus vaccine Sheba Hadley MD Work Phone: [facility] Work Phone: 08-20-1996 diphtheria, tetanus toxoids and acellular pertussis vaccine Sheba Hadley MD Work Phone: [facility] Work Phone: 08-20-1996 haemophilus influenz ae type b vaccine, HbOC conjugate Sheba Hadley MD Work Phone: [facility] Work Phone: 05-21-1996 measles, mumps and rubella virus vaccine Sheba Hadley MD Work Phone: [facility] Work Phone: 1995 diphtheria, tetanus toxoids and acellular pertussis vaccine Sheba Hadley MD Work Phone: [facility] Work Phone: 1995 haemophilus influenz ae type b vaccine, HbOC conjugate Sheba Hadley MD Work Phone: [facility] Work Phone: 1995 hepatitis B vaccine, pediatric or pediatric/adolescent dosage Sheba Hadley MD Work Phone: [facility] Work Phone: 1995 trivalent poliovirus vaccine, live, oral Sheba Hadley MD Work Phone: [facility] Work Phone: 1995 diphtheria, tetanus toxoids and acellular pertussis vaccine Sheba Hadley MD Work Phone: [facility] Work Phone: 1995 haemophilus influenz ae type b vaccine, HbOC conjugate Sheba Hadley MD Work Phone: [facility] Work Phone: 1995 trivalent poliovirus vaccine, live, oral Sheba Hadley MD Work Phone: [facility] Work Phone: 1995 diphtheria, tetanus toxoids and acellular pertussis vaccine Sheba Hadley MD Work Phone: [facility] Work Phone: 1995 haemophilus influenz ae type b vaccine, HbOC conjugate Sheba Hadley MD Work Phone: [facility] Work Phone: 1995 trivalent poliovirus vaccine, live, oral Sheba Hadley MD Work Phone: [facility] Work Phone: 1995 hepatitis B vaccine, pediatric or pediatric/adolescent dosage Sheba Hadley MD Work Phone: [facility] Work Phone: 1995 hepatitis B vaccine, pediatric or pediatric/adolescent dosage Sheba Hadley MD Work Phone: [facility] Work Phone: Payers Date Payer Category Payer Medicaid [employer] [id number] 2022-Present [phone] [address] [place] [address] Medicaid [id number] 2022 Medicaid [id number] Social History Date Type Detail Facility Start: 08-22-2017 End: 06-17-2023 Tobacco smoking status NHIS Never smoked tobacco [facility] History of tobacco use Passive smoker [facility] Start: 08-22-2017 End: 06-17-2023 Tobacco use and exposure Smokeless tobacco non-user [facility] Start: 02-17-2021 End: 06-17-2023 Alcohol intake Current drinker of alcohol (finding) [facility] Start: 10-19-2020 End: 06-15-2023 History of Social function [facility] Start: 10-19-2020 End: 06-15-2023 Social connection and isolation panel [facility] Do you belong to any clubs or organizations such as pentecostal groups, unions, fraternal or athletic groups, or school groups? No [facility] Are you now , , , , never or living with a partner? Living with partner [facility] How often to you hav e a drink containing alcohol? Monthly or less [facility] How many standard dr inks containing alcohol do you have on a typical day? 1 or 2 [facility] How often do you hav e 6 or more drinks on 1 occasion? Never [facility] How hard is it for y ou to pay for the very basics like food, housing, medical care, and heating Not hard at all [facility] Do you feel stress - tense, restless, nervous, or anxious, or unable to sleep at night because your mind is troubled all the time - these days [OSQ] Not at all [facility] (I/We) worried whekate er (my/our) food would run out before (I/we) got money to buy more. Never true [facility] Start: 02-15-2021 Education 12 [facility] Start: 09-22-2012 End: 06-17-2023 Tobacco Comment father smokes outside [facility] Start: 01-16-2017 [facility] Start: 1995 Sex Assigned At Not on file C [facility] Progress note 06-17-2023 Note Date & Type Note Facility 06-17-2023 Note HNO ID: [id number] Author: Viviana Wharton APRN.TIME CHECKER Service: ? Author Type: Nurse Specialist Type: Progress Notes Filed: 06/17/2023 1:38 PM Note Text: SUBJECTIVE: COVID-19 VACCINE(1) Never done HIV SCREENING Never done DEPRESSION ASSESSMENT Never done HPI Tomas Ojeda is a 28 year old female. 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 Presents today regarding lab work that she had obtained for an [employer] physical. CMP and lipids were within normal limits. Urinalysis completed showed proteinuria. She has results on her phone no written results. She reports taking supplements through [employer] vitamins and supplements recently. She reports 20 pound intentional weight loss. States no current exercise. No urinary complaints. Notes she is in her usual state of health, feels well. Notes right great toe infection the last day or so, draining pus. Review of Systems Constitutional: Negative. Respiratory: Negative. Cardiovascular: Negative. Endocrine: Negative. Genitourinary: Negative. Objective BP 128/84 Pulse 78 Resp 16 Ht 167.6 cm (5' 6 ) Wt 102.1 kg (225 lb) LMP 01/26/2021 (Approximate) SpO2 97% BMI 36.32 kg/m? Physical Exam Vitals and nursing note reviewed. Constitutional: Appearance: Normal appearance. HENT: Head: Normocephalic and atraumatic. Eyes: Conjunctiva/sclera: Conjunctivae normal. Cardiovascular: Rate and Rhythm: Normal rate and regular rhythm. Heart sounds: Normal heart sounds. Pulmonary: Effort: Pulmonary effort is normal. Breath sounds: Normal breath sounds. Abdominal: General: Bowel sounds are normal. Palpations: Abdomen is soft. Musculoskeletal: Right lower leg: No edema. Left lower leg: No edema. Skin: General: Skin is warm and dry. Neurological: General: No focal deficit present. Mental Status: She is alert and oriented to person, place, and time. ALLERGIES No Known Allergies Medications Multivitamin capsule Take 1 capsule by mouth once daily. Lactobac no.41/Bifidobact no.7 (PROBIOTIC-10 ORAL) Take by mouth. OTC NUTRITIONAL SUPPLEMENT GLA Complex cephALEXin (KEFLEX) 500 mg capsule Take 1 capsule by mouth four times daily for 10 days. Take with food. For toe infection ipratropium bromide (ATROVENT) 42 mcg (0.06 %) nasal spray Use 2 Sprays in the nose four times daily as needed. cholecalciferol, vitamin D3, (VITAMIN D3 ORAL) Take by mouth. PAST MEDICAL HISTORY Diagnosis Date Anxiety 01/06/2017 H - PAST MEDICAL HISTORY OF normal color vision Social History Tobacco Use Smoking status: Never Passive exposure: Yes Smokeless tobacco: Never Tobacco comments: father smokes outside Substance Use Topics Alcohol use: Yes Comment: social Drug use: No Labs June 06, 2023 obtained on phone: HDL 49, LDL 128, glucose 92 triglycerides 143 hemoglobin A1c 5.1% BUN 11 creatinine 0.77, all other lab results in normal range. Urinalysis within normal range except for elevated protein. ASSESSMENT/PLAN: 1. Proteinuria, unspecified type - ICD9: 791.0, ICD10: R80.9 (primary diagnosis) Elevated protein with normal BUN and creatinine on outside lab testing. She reports no increased exertion but has had weight loss of 20 pounds recently. Intentional. Reports taking [employer] supplements. Recommend stopping supplements and recheck urinalysis in 1 week. She prefers to check urinalysis today. If returns positive further work-up is indicated. - URINALYSIS WITH MICROSCOPIC, REFLEX CULTURE 2. Encounter for immunization - ICD9: V03.89, ICD10: Z23 - [employer] COVID-19 BIVALENT VACCINE, AGE 12+ YR 3. Screening for HIV (human immunodeficiency virus) - ICD9: V73.89, ICD10: Z11.4 Complete if not already done so - HIV 1 2 COMBO(AG/AB),WITH REFLEX TO DIFFERENTIATION 5. Skin infection - ICD9: 686.9, ICD10: L08.9 6. Toe infection - ICD9: 686.9, ICD10: L08.9 Skin infection next to right great toe nailbed, Keflex x10 days. Keep area clean and dry. Okay to soak in warm water or Epsom salts. - CONSULT TO PODIATRY - CEPHALEXIN 500 MG CAPSULE 6-12 mo Sheba Hadley MD Terri Brooks, HOUSE PARENT.TIME CHECKER Medical Decision Making: Problems: Low: Acute, uncomplicated illness or injury Data: Unique test(s) ordered: 2 Risk: Moderate: Drug management Medical Decision Making Level: 3 - Low [facility] History of Present illness Narrative 08-07-2023 Viviana Wharton, HOUSE PARENT.TIME CHECKER - 06/17/2023 1:00 PM EDT Note Date & Type Note Facility 06-17-2023 History of Presen t illness Narrative SUBJECTIVE: COVID-19 VACCINE(1) Never done HIV SCREENING Never done DEPRESSION ASSESSMENT Never done HPI Tomas Ojeda is a 28 year old female. 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 Presents today regarding lab work that she had obtained for an [employer] physical. CMP and lipids were within normal limits. Urinalysis completed showed proteinuria. She has results on her phone no written results. She reports taking supplements through [employer] vitamins and supplements recently. She reports 20 pound intentional weight loss. States no current exercise. No urinary complaints. Notes she is in her usual state of health, feels well. Notes right great toe infection the last day or so, draining pus. Review of Systems Constitutional: Negative. Respiratory: Negative. Cardiovascular: Negative. Endocrine: Negative. Genitourinary: Negative. Objective BP 128/84 Pulse 78 Resp 16 Ht 167.6 cm (5' 6 ) Wt 102.1 kg (225 lb) LMP 01/26/2021 (Approximate) SpO2 97% BMI 36.32 kg/m Physical Exam Vitals and nursing note reviewed. Constitutional: Appearance: Normal appearance. HENT: Head: Normocephalic and atraumatic. Eyes: Conjunctiva/sclera: Conjunctivae normal. Cardiovascular: Rate and Rhythm: Normal rate and regular rhythm. Heart sounds: Normal heart sounds. Pulmonary: Effort: Pulmonary effort is normal. Breath sounds: Normal breath sounds. Abdominal: General: Bowel sounds are normal. Palpations: Abdomen is soft. Musculoskeletal: Right lower leg: No edema. Left lower leg: No edema. Skin: General: Skin is warm and dry. Neurological: General: No focal deficit present. Mental Status: She is alert and oriented to person, place, and time. ALLERGIES No Known Allergies Medications Multivitamin capsule Take 1 capsule by mouth once daily. Lactobac no.41/Bifidobact no.7 (PROBIOTIC-10 ORAL) Take by mouth. OTC NUTRITIONAL SUPPLEMENT GLA Complex cephALEXin (KEFLEX) 500 mg capsule Take 1 capsule by mouth four times daily for 10 days. Take with food. For toe infection ipratropium bromide (ATROVENT) 42 mcg (0.06 %) nasal spray Use 2 Sprays in the nose four times daily as needed. cholecalciferol, vitamin D3, (VITAMIN D3 ORAL) Take by mouth. PAST MEDICAL HISTORY Diagnosis Date Anxiety 01/06/2017 PMH - PAST MEDICAL HISTORY OF normal color vision Social History Tobacco Use Smoking status: Never Passive exposure: Yes Smokeless tobacco: Never Tobacco comments: father smokes outside Substance Use Topics Alcohol use: Yes Comment: social Drug use: No Labs June 06, 2023 obtained on phone: HDL 49, LDL 128, glucose 92 triglycerides 143 hemoglobin A1c 5.1% BUN 11 creatinine 0.77, all other lab results in normal range. Urinalysis within normal range except for elevated protein. ASSESSMENT/PLAN: 1. Proteinuria, unspecified type - ICD9: 791.0, ICD10: R80.9 (primary diagnosis) Elevated protein with normal BUN and creatinine on outside lab testing. She reports no increased exertion but has had weight loss of 20 pounds recently. Intentional. Reports taking [employer] supplements. Recommend stopping supplements and recheck urinalysis in 1 week. She prefers to check urinalysis today. If returns positive further work-up is indicated. - URINALYSIS WITH MICROSCOPIC, REFLEX CULTURE 2. Encounter for immunization - ICD9: V03.89, ICD10: Z23 - [employer] COVID-19 BIVALENT VACCINE, AGE 12+ YR 3. Screening for HIV (human immunodeficiency virus) - ICD9: V73.89, ICD10: Z11.4 Complete if not already done so - HIV 1 2 COMBO(AG/AB),WITH REFLEX TO DIFFERENTIATION 5. Skin infection - ICD9: 686.9, ICD10: L08.9 6. Toe infection - ICD9: 686.9, ICD10: L08.9 Skin infection next to right great toe nailbed, Keflex x10 days. Keep area clean and dry. Okay to soak in warm water or Epsom salts. - CONSULT TO PODIATRY - CEPHALEXIN 500 MG CAPSULE 6-12 mo Sheba Hadley MD Terri Brooks, HOUSE PARENT.TIME CHECKER Medical Decision Making: Problems: Low: Acute, uncomplicated illness or injury Data: Unique test(s) ordered: 2 Risk: Moderate: Drug management Medical Decision Making Level: 3 - Low documented in this encounter [facility] Note 06-17-2023 Telephone Encounter - Zeenat Bhatia LPN - 06/17/2023 12:31 PM EDTTelephone Encounter - Stephenie Thomas APRN.CNP - 06/14/2023 1:14 PM EDT Note Date & Type Note Facility 06-17-2023 Miscellaneous Notes Formattin g of this note might be different from the original. Patient has the results on her phone, will show Viviana Wharton NP at her appt today @ 1 PM. Patient is currently here, waiting to check in. Zeenat Bhatia LPN She has an appointment next week with Viviana, please advise her to bring the results to that appointment and it can be discussed when she is in to the office. Thanks! See pt message below and advise. Poornima French Ma Tomas is calling to say she recently had labs done for a life insurance policy and the urine came back with a high protein level. She would like to know what to do. Majo reports the following results: A1C- 5.1 Urine Protein 22 documented in this encounter [facility] Evaluation note Note Date & Type Note Facility documented in this encounter [facility] Reason for Referral Specialty Diagnoses / Procedures Referred By Mary dominguez Referred To Contact Podiatry Diagnoses Toe infection Procedures CONSULT TO PODIATRY OFFICE/OUTPATIENT NEW HIGH MDM 60-74 MINUTES Viviana Wharton APRN.TIME CHECKER [address] [place] [address] Referral ID Status Reason Start Date Expiration Date Visits Requested Visits Authorized [id number] Authorized PCP Requested Referral 06/17/2023 06/16/2024 1 1 Summary Purpose Family History No Family History Records Found Advance Directives No Advanced Directives Records Found Additional Source Comments Source Comments (unrecognize d section and content) In the event this informatio n is protected by the Federal Confidentiality of Alcohol and Drug Abuse Patient Records regulations: The Federal rules restrict any use of the information to criminally investigate or prosecute any alcohol or drug abuse patient.[facility] the event this information is protected by the Federal Confidentiality of Alcohol and Drug Abuse Patient Records regulations: The Federal rules restrict any use of the information to criminally investigate or prosecute any alcohol or drug abuse patient.[facility] Reason for Visit (unrecogniz ed section and content) Reason Comments Physical Care Teams (unrecognized sec tion and content) Musical Instrument Supervisor Relationship Specialty Start Date End Date Sheba Hadley MD [address] [place] [address] PCP - General Internal Medicine 08/02/14 INFORMATION SOURCE (unrecogn ized section and content) FOR RECORDS PERTAINING TO PATIENTS WHO ARE OR HAVE BEEN ENROLLED IN A CHEMICAL DEPENDENCY/SUBSTANCEABUSE PROGRAM, SOME INFORMATION MAY BE OMITTED. This clinical summary was aggregated from multiple sources. Caution should be exercised in using it in the provision of clinical care. This summary normalizes information from multiple sources, and as a consequence, information in this document may materially change the coding, format and clinical context of patient data. In addition, data may be omitted in some cases. CLINICAL DECISIONS SHOULD BE BASED ON THE PRIMARY CLINICAL RECORDS. [facility] [employer] [facility]. provides no warranty or guarantee of the accuracy or completeness of information in this document.
[2023-12-21 08:57] LABS: Glucose Challenge Gest 1H 50g 131 mg/dL (70-140)
[2023-12-21 09:19] LABS: Hemoglobin A1c 5.3 % (3.8-5.6)
== END | disposition home or self-care (01) ==
PROVIDERS: PCP Internal Medicine; Referring Provider Obstetrics & Gynecology; Visit Provider Obstetrics & Gynecology
DX: Z13.1 Encounter for screening for diabetes mellitus (principal)
CPT/HCPCS: 36415; 82950; 83036

== ENCOUNTER → 2025-06-04 | Outpatient (CLI) | payer MEDICAID, SELFPAY ==
[2025-06-04 16:15] LABS: Hematocrit 35.7 % (37-47); Hemoglobin 12.7 g/dL (12.0-15.0); Immature Granulocytes Count 0.030 X10^3/uL (0.0-0.0); Mean Corp Hgb Conc 35.6 g/dL (32-36); Mean Corpuscular Volume 85.8 fL (81-99); Mean Platelet Vol. 8.8 fl (6.2-12.0); NRBC Flagged by Analyzer 0 % (0-5); Platelet Count 204 K/mm3 (150-450); RBC Distribution Width CV 12.7 % (11.6-14.6); RBC Distribution Width SD 39.7 fl (35.1-43.9); Red Blood Count 4.16 M/mm3 (4.2-5.4); White Blood Count 6.5 K/mm3 (4.4-11.0)
[2025-06-04 17:44] LABS: AST(SGOT) 17 U/L (<=31); Alanine Aminotransfer ALT/SGPT 12 U/L (<=34); Albumin, Serum 4.5 g/dL (3.5-5.0); Alkaline Phosphatase 45 U/L (35-104); Anion Gap 13 (5-15); BUN 11 mg/dL (4-19); BUN/Creat Ratio 19.9 RATIO (10-20); Calcium,Total 9.4 mg/dL (7.6-11.0); Carbon Dioxide 22.4 mmol/L (21.0-32.0); Chloride 100 mmol/L (98-108); Globulin 2.7 g/dL (2.2-4.2); Glucose 83 mg/dL (70-99); HIV Nonreactive (Nonreactive); Hepatitis B Surface Antigen Nonreactive (Nonreactive); Hepatitis C Antibody Nonreactive (Nonreactive); Potassium 3.8 mmol/L (3.3-5.1); Syphilis Antibodies Nonreactive (Nonreactive)
[2025-06-04 17:53] LABS: Creatinine, Urine (random) 7.23 mg/dL (28.00-217.00); Protein, Urine (Random) < 6.0 mg/dL (0.0-12.0); Protein:Creat Ratio 419 mg/g CRE (0-200)
[2025-06-08 04:07] LABS: Chlamydia By Nucleic Acid AMP Negative (Negative); Gonococcus By Nucleic Acid AMP Negative (Negative)
== END | disposition home or self-care (01) ==
PROVIDERS: PCP Internal Medicine; Referring Provider Registered Nurse; Visit Provider Registered Nurse
DX: O09.90 Supervision of high risk pregnancy, unspecified, unspecified trimester (principal); Z3A.00 Weeks of gestation of pregnancy not specified; Z87.898 Personal history of other specified conditions
CPT/HCPCS: 36415; 80053; 82570; 83036; 84156; 85025; 86703; 86762; 86780; 86803; 86850; 86900; 86901; 87086; 87088; 87340; 87491; 87591

== ENCOUNTER → 2025-07-09 | Outpatient (CLI) | payer MEDICAID, SELFPAY ==
[2025-07-09 11:31] LABS: 24HR. Urine Creatinine 1386.0 mg/24 hr (740.0-1540.0); Urine Protein (24 Hour) < 6.0 mg/dL (<11.9)
[2025-07-09 11:32] LABS: 24HR. UA Prot. Total Volume 6000 mL; 24Hr UA Prot. Collection Time 24.0 HOURS (24.0)
[2025-07-09 11:33] LABS: Creatinine Serum Creat 0.6 mg/dL (0.6-1.0)
== END | disposition home or self-care (01) ==
LOC: BWCLAB 10:03
PROVIDERS: PCP Internal Medicine; Visit Provider Obstetrics & Gynecology
DX: O09.90 Supervision of high risk pregnancy, unspecified, unspecified trimester (principal); Z3A.00 Weeks of gestation of pregnancy not specified; Z87.59 Personal history of other complications of pregnancy, childbirth and the puerperium
CPT/HCPCS: 36415; 81050; 82565; 82570; 82575; 84156

== ENCOUNTER → 2025-08-13 | Outpatient (CLI) | payer MEDICAID, SELFPAY | END | disposition home or self-care (01) | LOC: BWCLAB 10:36 | PROVIDERS: PCP Internal Medicine; Referring Provider Obstetrics & Gynecology; Visit Provider Obstetrics & Gynecology | DX: Z34.82 Encounter for supervision of other normal pregnancy, second trimester (principal) | CPT/HCPCS: 36415 ==

== ENCOUNTER → 2025-09-29 | Outpatient (CLI) | payer MEDICAID, SELFPAY ==
[2025-09-29 17:35] LABS: Creatinine, Urine (random) 68.60 mg/dL (28.00-217.00); Protein, Urine (Random) 11.2 mg/dL (0.0-12.0); Protein:Creat Ratio 163 mg/g CRE (0-200)
[2025-09-29 17:37] LABS: Hematocrit 35.1 % (37-47); Hemoglobin 12.3 g/dL (12.0-15.0); Immature Granulocytes Count 0.080 X10^3/uL (0.0-0.0); Mean Corp Hgb Conc 35.0 g/dL (32-36); Mean Corpuscular Volume 93.4 fL (81-99); Mean Platelet Vol. 9.1 fl (6.2-12.0); NRBC Flagged by Analyzer 0 % (0-5); Platelet Count 197 K/mm3 (150-450); RBC Distribution Width CV 13.0 % (11.6-14.6); RBC Distribution Width SD 44.3 fl (35.1-43.9); Red Blood Count 3.76 M/mm3 (4.2-5.4); White Blood Count 7.9 K/mm3 (4.4-11.0)
[2025-09-29 17:56] LABS: HIV Nonreactive (Nonreactive); Syphilis Antibodies Nonreactive (Nonreactive)
[2025-09-29 17:58] LABS: Glucose Challenge Gest 1H 50g 75 mg/dL (70-140)
== END | disposition home or self-care (01) ==
PROVIDERS: Obstetrics & Gynecology; PCP Internal Medicine; Visit Provider Obstetrics & Gynecology
DX: O09.90 Supervision of high risk pregnancy, unspecified, unspecified trimester (principal); O12.11 Gestational proteinuria, first trimester; Z3A.00 Weeks of gestation of pregnancy not specified
CPT/HCPCS: 36415; 82570; 82950; 84156; 85025; 86703; 86780